=== PATIENT | male | born 1990 ===

== ENCOUNTER 2021-01-29 02:50 | Inpatient (IN) ==
[2021-01-29 03:30] LABS: ABG Base Excess -1.3 MMOL/L (-2.5-2.5); ABG HCO3 23.3 MMOL/L (20-26); ABG Oxygen Saturation 96.9 % (95-100); ABG PCO2 33.6 MM HG (35-48); ABG PH 7.428 (7.35-7.45); ABG PO2 93.2 MM HG (80-95)
[2021-01-29] MEDS ORDERED: AZITHROMYCIN INJ 500 MG in SODIUM CHLORIDE 0.9% 250 ML IV ONE (04:10)
[2021-01-29] MEDS: ZINC GLUCONATE 50 MG TABLET PO SCH (08:20)
[2021-01-29] MEDS: CHOLECALCIFEROL 1,000 UNIT TABLET PO SCH (08:20)
[2021-01-29] MEDS: FAMOTIDINE 20 MG TABLET PO SCH ×2 (08:20→20:19)
[2021-01-29] MEDS: ASCORBIC ACID 500 MG TABLET PO SCH ×2 (08:20→20:19)
[2021-01-29] MEDS: ENOXAPARIN 40 MG/0.4 ML SYRINGE SUBCUT SCH (08:20)
[2021-01-29] MEDS: DEXAMETHASONE 4 MG/1 ML VIAL IV SCH (08:21)
[2021-01-29] MEDS ORDERED: DEXTROSE 50% 25 GM/50 ML VIAL IV PRN (09:12)
[2021-01-29] MEDS ORDERED: ONDANSETRON 4 MG/2 ML VIAL IV PRN (09:12)
[2021-01-29] MEDS ORDERED: GLUCAGON 1 MG VIAL IM PRN (09:12)
[2021-01-30 04:16] LABS: Basophils % 0.2 % (0.0-0.8); Hematocrit 41.3 VOL% (42.0-52.0); Hemoglobin 13.7 GM/DL (14.0-18.0); Immature Granulocytes % 1.1 %; Immature Granulocytes Absolute 0.06 #; Lymphocytes # 0.8 10*3/uL (1.4-4.0); Lymphocytes % 15.1 % (21.2-54.2); Mean Corpuscular HGB Conc 33.2 GM/DL (32-36); Mean Corpuscular Volume 91.4 FL (87-102); Mean Platelet Volume 10.1 FL (9.6-12.0); Monocytes % 7.4 % (1.7-12.7); Neutrophils % 76.2 % (38.7-73.9); Platelet Count 199 T/CUMM (130-400); Red Blood Count 4.52 MC/CUMM (3.8-5.5); White Blood Count 5.2 T/CUMM (4-12)
[2021-01-30 04:23] LABS: PT Patient Result 10.8 SECS (10.5-12.0)
[2021-01-30 04:53] LABS: Albumin 2.2 G/DL (3.4-5.0); Bilirubin,Total 0.6 MG/DL (0.20-1.00); Calcium 7.8 MG/DL (8.5-10.1); Osmolality,Calculated 291.4 MOS/KG (273-304); Total Protein 6.4 G/DL (6.4-8.2)
[2021-01-30 05:18] LABS: Band Neutrophils 9 % (0-10); Lymphocytes 6 % (20-55); Segmented Neutrophils 75 % (50-85); Total Cells Counted 100
[2021-01-30 05:19] LABS: Hypochromasia 1+; Microcytosis 1+; Ovalocytes Slight; Platelet Estimate Adequate
[2021-01-30] MEDS: ENOXAPARIN 40 MG/0.4 ML SYRINGE SUBCUT SCH (09:15)
[2021-01-30] MEDS: ZINC GLUCONATE 50 MG TABLET PO SCH (09:15)
[2021-01-30] MEDS: CHOLECALCIFEROL 1,000 UNIT TABLET PO SCH (09:15)
[2021-01-30] MEDS: DEXAMETHASONE 4 MG/1 ML VIAL IV SCH (09:15)
[2021-01-30] MEDS: FAMOTIDINE 20 MG TABLET PO SCH ×2 (09:15→21:28)
[2021-01-30] MEDS: ASCORBIC ACID 500 MG TABLET PO SCH ×2 (09:15→21:28)
[2021-01-30] MEDS ORDERED: DEXTROSE 50% 25 GM/50 ML VIAL IV PRN (17:27)
[2021-01-30] MEDS: INSULIN REGULAR 100 UNIT/ML SUBCUT SCH (21:27)
[2021-01-31 05:36] LABS: Basophils % 0.1 % (0.0-0.8); Immature Granulocytes % 0.9 %; Immature Granulocytes Absolute 0.07 #; Lymphocytes # 0.9 10*3/uL (1.4-4.0); Lymphocytes % 11.1 % (21.2-54.2); Mean Corpuscular HGB Conc 33.3 GM/DL (32-36); Mean Corpuscular Volume 92.3 FL (87-102); Mean Platelet Volume 10.6 FL (9.6-12.0); Monocytes % 8.3 % (1.7-12.7); Neutrophils % 79.6 % (38.7-73.9); Platelet Count 225 T/CUMM (130-400); Red Blood Count 4.55 MC/CUMM (3.8-5.5); Red Cell Distribution Width 13.6 % (9.3-17.3); White Blood Count 7.8 T/CUMM (4-12)
[2021-01-31 06:00] LABS: Albumin 2.4 G/DL (3.4-5.0); Bilirubin,Direct 0.28 MG/DL (0.0-0.20); Bilirubin,Indirect 0.3 MG/DL (0.0-1.0); Bilirubin,Total 0.6 MG/DL (0.20-1.00); Calcium 8.2 MG/DL (8.5-10.1); Potassium 4.1 MMOL/L (3.5-5.1); Total Protein 6.6 G/DL (6.4-8.2)
[2021-01-31 06:04] LABS: Band Neutrophils 4 % (0-10); Hypochromasia Slight; Lymphocytes 9 % (20-55); Microcytosis 1+; Ovalocytes Slight; Segmented Neutrophils 81 % (50-85); Total Cells Counted 100
[2021-01-31 06:05] LABS: Platelet Estimate Normal
[2021-01-31] MEDS: FAMOTIDINE 20 MG TABLET PO SCH ×2 (09:17→20:49)
[2021-01-31] MEDS: CHOLECALCIFEROL 1,000 UNIT TABLET PO SCH (09:18)
[2021-01-31] MEDS: ENOXAPARIN 40 MG/0.4 ML SYRINGE SUBCUT SCH (09:18)
[2021-01-31] MEDS: ZINC GLUCONATE 50 MG TABLET PO SCH (09:18)
[2021-01-31] MEDS: ASCORBIC ACID 500 MG TABLET PO SCH ×2 (09:18→20:49)
[2021-01-31] MEDS: INSULIN REGULAR 100 UNIT/ML SUBCUT SCH ×4 (09:19→20:49)
[2021-01-31] MEDS: DEXAMETHASONE 4 MG/1 ML VIAL IV SCH (09:19)
[2021-01-31] MEDS: MELATONIN 3 MG TABLET PO PRN (20:49)
[2021-02-01 05:23] LABS: Basophils % 0.1 % (0.0-0.8); Hemoglobin 14.4 GM/DL (14.0-18.0); Immature Granulocytes % 1.2 %; Immature Granulocytes Absolute 0.09 #; Lymphocytes % 12.9 % (21.2-54.2); Mean Corpuscular HGB Conc 33.5 GM/DL (32-36); Mean Corpuscular Volume 90.9 FL (87-102); Mean Platelet Volume 10.3 FL (9.6-12.0); Monocytes % 10.7 % (1.7-12.7); Neutrophils % 75.1 % (38.7-73.9); Platelet Count 232 T/CUMM (130-400); Red Blood Count 4.73 MC/CUMM (3.8-5.5); Red Cell Distribution Width 13.4 % (9.3-17.3); White Blood Count 7.4 T/CUMM (4-12)
[2021-02-01 05:46] LABS: Hypochromasia Slight; Microcytosis Slight
[2021-02-01 05:47] LABS: Ovalocytes Slight; Platelet Estimate Adequate
[2021-02-01 06:02] LABS: Albumin 2.6 G/DL (3.4-5.0); Bilirubin,Direct 0.41 MG/DL (0.0-0.20); Bilirubin,Indirect 0.5 MG/DL (0.0-1.0); Bilirubin,Total 0.9 MG/DL (0.20-1.00); Calcium 8.2 MG/DL (8.5-10.1); Osmolality,Calculated 284.5 MOS/KG (273-304); Potassium 3.8 MMOL/L (3.5-5.1)
[2021-02-01] MEDS: INSULIN REGULAR 100 UNIT/ML SUBCUT SCH ×4 (08:08→21:24)
[2021-02-01] MEDS: CHOLECALCIFEROL 1,000 UNIT TABLET PO SCH (08:32)
[2021-02-01] MEDS: FAMOTIDINE 20 MG TABLET PO SCH ×2 (08:32→21:20)
[2021-02-01] MEDS: ZINC GLUCONATE 50 MG TABLET PO SCH (08:33)
[2021-02-01] MEDS: ASCORBIC ACID 500 MG TABLET PO SCH ×2 (08:33→21:21)
[2021-02-01] MEDS: ENOXAPARIN 40 MG/0.4 ML SYRINGE SUBCUT SCH (08:33)
[2021-02-01] MEDS: DEXAMETHASONE 4 MG/1 ML VIAL IV SCH (08:33)
[2021-02-01] MEDS: CLORAZEPATE 3.75 MG TABLET PO PRN (21:21)
[2021-02-02 07:05] LABS: Basophils % 0.1 % (0.0-0.8); Eosinophils % 0.1 % (0.00-10.9); Hemoglobin 14.3 GM/DL (14.0-18.0); Immature Granulocytes % 1.3 %; Immature Granulocytes Absolute 0.15 #; Lymphocytes # 1.4 10*3/uL (1.4-4.0); Lymphocytes % 12.1 % (21.2-54.2); Mean Corpuscular HGB Conc 33.3 GM/DL (32-36); Mean Corpuscular Volume 92.1 FL (87-102); Mean Platelet Volume 10.8 FL (9.6-12.0); Monocytes % 4.5 % (1.7-12.7); Neutrophils % 81.9 % (38.7-73.9); Platelet Count 226 T/CUMM (130-400); Red Blood Count 4.67 MC/CUMM (3.8-5.5); Red Cell Distribution Width 13.4 % (9.3-17.3); White Blood Count 11.2 T/CUMM (4-12)
[2021-02-02 07:29] LABS: Calcium 8.6 MG/DL (8.5-10.1); Osmolality,Calculated 285.1 MOS/KG (273-304)
[2021-02-02] MEDS: INSULIN REGULAR 100 UNIT/ML SUBCUT SCH ×4 (07:41→20:35)
[2021-02-02] MEDS: DEXAMETHASONE 4 MG/1 ML VIAL IV SCH (10:18)
[2021-02-02] MEDS: ZINC GLUCONATE 50 MG TABLET PO SCH (10:19)
[2021-02-02] MEDS: ENOXAPARIN 40 MG/0.4 ML SYRINGE SUBCUT SCH (10:19)
[2021-02-02] MEDS: FAMOTIDINE 20 MG TABLET PO SCH ×2 (10:19→20:25)
[2021-02-02] MEDS: CHOLECALCIFEROL 1,000 UNIT TABLET PO SCH (10:19)
[2021-02-02] MEDS: ASCORBIC ACID 500 MG TABLET PO SCH ×2 (10:20→20:25)
[2021-02-02] MEDS ORDERED: LORazepam 2 MG/1 ML VIAL IV ONE (13:21)
[2021-02-02] MEDS ORDERED: LORazepam 2 MG/1 ML VIAL ONE (13:47)
[2021-02-02] MEDS: MELATONIN 3 MG TABLET PO PRN (20:25)
[2021-02-03] MEDS: CLORAZEPATE 3.75 MG TABLET PO PRN ×2 (00:32→23:32)
[2021-02-03 06:16] LABS: Basophils % 0.1 % (0.0-0.8); Eosinophils # 0.1 10*3/uL (0.0-0.87); Eosinophils % 0.5 % (0.00-10.9); Hemoglobin 14.4 GM/DL (14.0-18.0); Immature Granulocytes % 1.4 %; Immature Granulocytes Absolute 0.17 #; Lymphocytes # 1.1 10*3/uL (1.4-4.0); Lymphocytes % 8.9 % (21.2-54.2); Mean Corpuscular HGB Conc 33.5 GM/DL (32-36); Mean Corpuscular Volume 91.9 FL (87-102); Mean Platelet Volume 11.4 FL (9.6-12.0); Monocytes % 2.9 % (1.7-12.7); Neutrophils % 86.2 % (38.7-73.9); Platelet Count 180 T/CUMM (130-400); Red Blood Count 4.68 MC/CUMM (3.8-5.5); Red Cell Distribution Width 13.2 % (9.3-17.3); White Blood Count 12.2 T/CUMM (4-12)
[2021-02-03 06:39] LABS: Calcium 8.4 MG/DL (8.5-10.1); Osmolality,Calculated 279.4 MOS/KG (273-304); Potassium 4.1 MMOL/L (3.5-5.1)
[2021-02-03] MEDS: INSULIN REGULAR 100 UNIT/ML SUBCUT SCH ×4 (07:32→20:17)
[2021-02-03] MEDS: ASCORBIC ACID 500 MG TABLET PO SCH ×2 (08:08→20:17)
[2021-02-03] MEDS: FAMOTIDINE 20 MG TABLET PO SCH ×2 (08:08→20:17)
[2021-02-03] MEDS: CHOLECALCIFEROL 1,000 UNIT TABLET PO SCH (08:08)
[2021-02-03] MEDS: ZINC GLUCONATE 50 MG TABLET PO SCH (08:09)
[2021-02-03] MEDS: ENOXAPARIN 40 MG/0.4 ML SYRINGE SUBCUT SCH (08:09)
[2021-02-03] MEDS: DEXAMETHASONE 4 MG/1 ML VIAL IV SCH (08:09)
[2021-02-03] MEDS: MELATONIN 3 MG TABLET PO PRN (20:17)
[2021-02-04] MEDS: ACETAMINOPHEN 325 MG TABLET PO PRN (01:35)
[2021-02-04 05:45] LABS: Basophils % 0.1 % (0.0-0.8); Eosinophils # 0.2 10*3/uL (0.0-0.87); Eosinophils % 1.2 % (0.00-10.9); Hematocrit 41.9 VOL% (42.0-52.0); Hemoglobin 14.4 GM/DL (14.0-18.0); Immature Granulocytes Absolute 0.27 #; Lymphocytes % 7.1 % (21.2-54.2); Mean Corpuscular HGB Conc 34.4 GM/DL (32-36); Mean Corpuscular Volume 91.5 FL (87-102); Mean Platelet Volume 11.2 FL (9.6-12.0); Monocytes % 3.6 % (1.7-12.7); Platelet Count 189 T/CUMM (130-400); Red Blood Count 4.58 MC/CUMM (3.8-5.5); Red Cell Distribution Width 13.2 % (9.3-17.3); White Blood Count 13.6 T/CUMM (4-12)
[2021-02-04 06:06] LABS: Calcium 8.5 MG/DL (8.5-10.1); Osmolality,Calculated 279.4 MOS/KG (273-304); Potassium 3.9 MMOL/L (3.5-5.1)
[2021-02-04] MEDS: ENOXAPARIN 40 MG/0.4 ML SYRINGE SUBCUT SCH (08:14)
[2021-02-04] MEDS: DEXAMETHASONE 4 MG/1 ML VIAL IV SCH (08:14)
[2021-02-04] MEDS: CHOLECALCIFEROL 1,000 UNIT TABLET PO SCH (08:15)
[2021-02-04] MEDS: ASCORBIC ACID 500 MG TABLET PO SCH ×2 (08:15→20:08)
[2021-02-04] MEDS: FAMOTIDINE 20 MG TABLET PO SCH ×2 (08:15→20:08)
[2021-02-04] MEDS: ZINC GLUCONATE 50 MG TABLET PO SCH (08:15)
[2021-02-04] MEDS: CLORAZEPATE 3.75 MG TABLET PO PRN (08:17)
[2021-02-04] MEDS: INSULIN REGULAR 100 UNIT/ML SUBCUT SCH ×4 (08:18→21:53)
[2021-02-04] MEDS: ALPRAZolam 0.5 MG TABLET PO PRN ×2 (12:00→22:57)
[2021-02-04 12:51] LABS: ABG Base Excess 0.9 MMOL/L (-2.5-2.5); ABG HCO3 25.2 MMOL/L (20-26); ABG Oxygen Saturation 95.1 % (95-100); ABG PCO2 35.5 MM HG (35-48); ABG PH 7.447 (7.35-7.45); ABG PO2 78.3 MM HG (80-95)
[2021-02-04] MEDS: MELATONIN 3 MG TABLET PO PRN (20:08)
[2021-02-05] MEDS: CLORAZEPATE 3.75 MG TABLET PO PRN (01:45)
[2021-02-05 07:00] LABS: Basophils % 0.2 % (0.0-0.8); Eosinophils # 0.1 10*3/uL (0.0-0.87); Eosinophils % 0.8 % (0.00-10.9); Hematocrit 40.4 VOL% (42.0-52.0); Hemoglobin 13.7 GM/DL (14.0-18.0); Immature Granulocytes % 1.9 %; Immature Granulocytes Absolute 0.26 #; Lymphocytes # 0.8 10*3/uL (1.4-4.0); Mean Corpuscular HGB Conc 33.9 GM/DL (32-36); Mean Corpuscular Volume 91.4 FL (87-102); Mean Platelet Volume 11.1 FL (9.6-12.0); Monocytes % 5.5 % (1.7-12.7); Neutrophils % 85.6 % (38.7-73.9); Platelet Count 191 T/CUMM (130-400); Red Blood Count 4.42 MC/CUMM (3.8-5.5); Red Cell Distribution Width 13.2 % (9.3-17.3); White Blood Count 13.9 T/CUMM (4-12)
[2021-02-05 07:27] LABS: Calcium 8.4 MG/DL (8.5-10.1); Osmolality,Calculated 273.8 MOS/KG (273-304); Potassium 4.1 MMOL/L (3.5-5.1)
[2021-02-05] MEDS: INSULIN REGULAR 100 UNIT/ML SUBCUT SCH ×4 (07:44→23:09)
[2021-02-05] MEDS: FAMOTIDINE 20 MG TABLET PO SCH ×2 (09:28→20:08)
[2021-02-05] MEDS: DEXAMETHASONE 4 MG/1 ML VIAL IV SCH (09:28)
[2021-02-05] MEDS: ENOXAPARIN 40 MG/0.4 ML SYRINGE SUBCUT SCH (09:28)
[2021-02-05] MEDS: CHOLECALCIFEROL 1,000 UNIT TABLET PO SCH (09:29)
[2021-02-05] MEDS: ASCORBIC ACID 500 MG TABLET PO SCH ×2 (09:29→20:08)
[2021-02-05] MEDS: ZINC GLUCONATE 50 MG TABLET PO SCH (09:29)
[2021-02-05] MEDS: ALPRAZolam 0.5 MG TABLET PO PRN ×2 (12:15→23:09)
[2021-02-05] MEDS: cefTRIAXone 1,000 MG in SODIUM CHLORIDE 0.9% 100 ML IV SCH (18:23)
[2021-02-05] MEDS: AZITHROMYCIN INJ 250 MG in SODIUM CHLORIDE 0.9% 250 ML IV SCH (18:54)
[2021-02-05] MEDS: ACETAMINOPHEN 325 MG TABLET PO PRN (20:08)
[2021-02-05] MEDS: MELATONIN 3 MG TABLET PO PRN (20:08)
[2021-02-05] MEDS: OLANZapine 5 MG TABLET PO PRN (20:08)
[2021-02-05] MEDS: ENOXAPARIN 80 MG/0.8 ML SYRINGE SUBCUT SCH (21:33)
[2021-02-06 04:26] LABS: Allen Test Positive; Pt O2 Delivery Device Other
[2021-02-06 04:28] LABS: ABG Base Excess 1.3 MMOL/L (-2.5-2.5); ABG HCO3 25.4 MMOL/L (20-26); ABG Oxygen Saturation 93.3 % (95-100); ABG PCO2 38.1 MM HG (35-48); ABG PH 7.431 (7.35-7.45); ABG PO2 69.6 MM HG (80-95); ABG TCO2 21.7 MMOL/L (23-27)
[2021-02-06 06:43] LABS: Basophils % 0.1 % (0.0-0.8); Eosinophils % 0.3 % (0.00-10.9); Hemoglobin 13.3 GM/DL (14.0-18.0); Immature Granulocytes % 1.5 %; Immature Granulocytes Absolute 0.21 #; Lymphocytes # 0.9 10*3/uL (1.4-4.0); Lymphocytes % 6.2 % (21.2-54.2); Mean Corpuscular HGB Conc 33.3 GM/DL (32-36); Mean Corpuscular Volume 90.9 FL (87-102); Mean Platelet Volume 11.3 FL (9.6-12.0); Monocytes % 5.8 % (1.7-12.7); Neutrophils % 86.1 % (38.7-73.9); Platelet Count 208 T/CUMM (130-400); Red Cell Distribution Width 13.2 % (9.3-17.3); White Blood Count 13.9 T/CUMM (4-12)
[2021-02-06 07:09] LABS: Calcium 8.7 MG/DL (8.5-10.1); Ferritin 1964.1 ng/mL (26-388); Osmolality,Calculated 276.7 MOS/KG (273-304)
[2021-02-06] MEDS: CHOLECALCIFEROL 1,000 UNIT TABLET PO SCH (08:32)
[2021-02-06] MEDS: ASCORBIC ACID 500 MG TABLET PO SCH ×2 (08:32→20:33)
[2021-02-06] MEDS: ENOXAPARIN 80 MG/0.8 ML SYRINGE SUBCUT SCH ×2 (08:33→20:33)
[2021-02-06] MEDS: FAMOTIDINE 20 MG TABLET PO SCH ×2 (08:33→20:34)
[2021-02-06] MEDS: ZINC GLUCONATE 50 MG TABLET PO SCH (08:33)
[2021-02-06] MEDS: DEXAMETHASONE 4 MG/1 ML VIAL IV SCH (08:33)
[2021-02-06] MEDS: INSULIN REGULAR 100 UNIT/ML SUBCUT SCH ×4 (08:34→20:35)
[2021-02-06] MEDS: AZITHROMYCIN INJ 250 MG in SODIUM CHLORIDE 0.9% 250 ML IV SCH (15:50)
[2021-02-06] MEDS: cefTRIAXone 1,000 MG in SODIUM CHLORIDE 0.9% 100 ML IV SCH (20:33)
[2021-02-06] MEDS: MELATONIN 3 MG TABLET PO PRN (20:34)
[2021-02-06] MEDS: OLANZapine 5 MG TABLET PO PRN (20:34)
[2021-02-06] MEDS: ALPRAZolam 0.5 MG TABLET PO PRN (20:34)
[2021-02-07] MEDS: CLORAZEPATE 3.75 MG TABLET PO PRN (04:00)
[2021-02-07 05:51] LABS: Basophils % 0.1 % (0.0-0.8); Eosinophils # 0.1 10*3/uL (0.0-0.87); Eosinophils % 0.6 % (0.00-10.9); Hematocrit 40.5 VOL% (42.0-52.0); Hemoglobin 13.3 GM/DL (14.0-18.0); Immature Granulocytes % 1.8 %; Immature Granulocytes Absolute 0.28 #; Lymphocytes # 1.2 10*3/uL (1.4-4.0); Lymphocytes % 8.2 % (21.2-54.2); Mean Corpuscular HGB Conc 32.8 GM/DL (32-36); Mean Corpuscular Volume 92.7 FL (87-102); Mean Platelet Volume 11.1 FL (9.6-12.0); Monocytes % 5.6 % (1.7-12.7); Neutrophils % 83.7 % (38.7-73.9); Platelet Count 208 T/CUMM (130-400); Red Blood Count 4.37 MC/CUMM (3.8-5.5); Red Cell Distribution Width 13.3 % (9.3-17.3); White Blood Count 15.2 T/CUMM (4-12)
[2021-02-07 05:57] LABS: Calcium 8.4 MG/DL (8.5-10.1); Ferritin 1623.6 ng/mL (26-388); Osmolality,Calculated 279.4 MOS/KG (273-304); Potassium 3.8 MMOL/L (3.5-5.1)
[2021-02-07] MEDS: INSULIN REGULAR 100 UNIT/ML SUBCUT SCH ×4 (07:30→20:47)
[2021-02-07] MEDS: ASCORBIC ACID 500 MG TABLET PO SCH ×2 (09:14→20:45)
[2021-02-07] MEDS: DEXAMETHASONE 4 MG/1 ML VIAL IV SCH (09:14)
[2021-02-07] MEDS: ENOXAPARIN 80 MG/0.8 ML SYRINGE SUBCUT SCH (09:15)
[2021-02-07] MEDS: FAMOTIDINE 20 MG TABLET PO SCH ×2 (09:15→20:45)
[2021-02-07] MEDS: CHOLECALCIFEROL 1,000 UNIT TABLET PO SCH (09:15)
[2021-02-07] MEDS: ZINC GLUCONATE 50 MG TABLET PO SCH (09:15)
[2021-02-07] MEDS: AZITHROMYCIN INJ 250 MG in SODIUM CHLORIDE 0.9% 250 ML IV SCH (09:16)
[2021-02-07 14:33] LABS: Alanine Aminotransferase 135 U/L (16-61); Aspartate Amino Transferase 92 U/L (0-37)
[2021-02-07] MEDS: ALPRAZolam 0.5 MG TABLET PO PRN (20:45)
[2021-02-07] MEDS: MELATONIN 3 MG TABLET PO PRN (20:45)
[2021-02-07] MEDS: OLANZapine 5 MG TABLET PO PRN (20:45)
[2021-02-07] MEDS: ENOXAPARIN 150 MG/ML SYRINGE SUBCUT SCH (20:46)
[2021-02-07] MEDS: cefTRIAXone 1,000 MG in SODIUM CHLORIDE 0.9% 100 ML IV SCH (20:46)
[2021-02-08 05:43] LABS: Basophils % 0.2 % (0.0-0.8); Eosinophils # 0.1 10*3/uL (0.0-0.87); Eosinophils % 0.4 % (0.00-10.9); Hematocrit 39.5 VOL% (42.0-52.0); Hemoglobin 13.5 GM/DL (14.0-18.0); Immature Granulocytes % 1.4 %; Immature Granulocytes Absolute 0.25 #; Lymphocytes # 1.4 10*3/uL (1.4-4.0); Lymphocytes % 7.7 % (21.2-54.2); Mean Corpuscular HGB Conc 34.2 GM/DL (32-36); Mean Corpuscular Volume 92.1 FL (87-102); Mean Platelet Volume 11.6 FL (9.6-12.0); Monocytes % 4.4 % (1.7-12.7); Neutrophils % 85.9 % (38.7-73.9); Platelet Count 220 T/CUMM (130-400); Red Blood Count 4.29 MC/CUMM (3.8-5.5); Red Cell Distribution Width 13.3 % (9.3-17.3); White Blood Count 18.2 T/CUMM (4-12)
[2021-02-08 06:11] LABS: Calcium 8.8 MG/DL (8.5-10.1); Osmolality,Calculated 273.8 MOS/KG (273-304); Potassium 3.9 MMOL/L (3.5-5.1)
[2021-02-08 06:19] LABS: Ferritin 1504.8 ng/mL (26-388)
[2021-02-08] MEDS: INSULIN REGULAR 100 UNIT/ML SUBCUT SCH ×4 (07:51→21:15)
[2021-02-08] MEDS: ENOXAPARIN 150 MG/ML SYRINGE SUBCUT SCH ×2 (09:25→20:42)
[2021-02-08] MEDS: ALPRAZolam 0.5 MG TABLET PO PRN ×2 (09:26→20:43)
[2021-02-08] MEDS: ASCORBIC ACID 500 MG TABLET PO SCH ×2 (09:26→20:43)
[2021-02-08] MEDS: CHOLECALCIFEROL 1,000 UNIT TABLET PO SCH (09:26)
[2021-02-08] MEDS: FAMOTIDINE 20 MG TABLET PO SCH ×2 (09:26→20:43)
[2021-02-08] MEDS: ZINC GLUCONATE 50 MG TABLET PO SCH (09:26)
[2021-02-08] MEDS: AZITHROMYCIN INJ 250 MG in SODIUM CHLORIDE 0.9% 250 ML IV SCH (09:32)
[2021-02-08 13:52] LABS: ABG Base Excess 1.6 MMOL/L (-2.5-2.5); ABG HCO3 25.5 MMOL/L (20-26); ABG Oxygen Saturation 90.4 % (95-100); ABG PCO2 36.8 MM HG (35-48); ABG PH 7.442 (7.35-7.45); ABG PO2 61.3 MM HG (80-95); ABG TCO2 19.4 MMOL/L (23-27)
[2021-02-08] MEDS: cefTRIAXone 1,000 MG in SODIUM CHLORIDE 0.9% 100 ML IV SCH (20:42)
[2021-02-08] MEDS: MELATONIN 3 MG TABLET PO PRN (20:43)
[2021-02-08] MEDS: OLANZapine 5 MG TABLET PO PRN (20:43)
[2021-02-09] MEDS: ALPRAZolam 0.5 MG TABLET PO PRN (01:56)
[2021-02-09] MEDS ORDERED: ROCURONIUM 100 MG/10 ML VIAL IV ONE ×3 (04:20→07:06)
[2021-02-09] MEDS ORDERED: ETOMIDATE 20 MG/10 ML VIAL IV ONE ×2 (04:31→04:40)
[2021-02-09] MEDS ORDERED: ACETAMINOPHEN 650 MG SUPP RECTAL ONE (05:00)
[2021-02-09] MEDS ORDERED: METOPROLOL TARTRATE 5 MG/5 ML VIAL IV ONE ×2 (05:07→05:20)
[2021-02-09] MEDS: METOPROLOL TARTRATE 5 MG/5 ML VIAL IV SCH ×3 (05:08→07:02)
[2021-02-09] MEDS ORDERED: LABETALOL 20 MG/4 ML SYRINGE IV ONE ×2 (05:20→10:17)
[2021-02-09 05:27] LABS: Basophils % 0.2 % (0.0-0.8); Eosinophils # 0.1 10*3/uL (0.0-0.87); Eosinophils % 0.6 % (0.00-10.9); Hematocrit 40.1 VOL% (42.0-52.0); Hemoglobin 13.1 GM/DL (14.0-18.0); Immature Granulocytes % 2.2 %; Immature Granulocytes Absolute 0.49 #; Lymphocytes # 1.8 10*3/uL (1.4-4.0); Lymphocytes % 8.3 % (21.2-54.2); Mean Corpuscular HGB Conc 32.7 GM/DL (32-36); Mean Corpuscular Volume 93.9 FL (87-102); Mean Platelet Volume 11.3 FL (9.6-12.0); Monocytes % 3.6 % (1.7-12.7); Neutrophils % 85.1 % (38.7-73.9); Platelet Count 229 T/CUMM (130-400); Red Blood Count 4.27 MC/CUMM (3.8-5.5); Red Cell Distribution Width 13.6 % (9.3-17.3); White Blood Count 21.9 T/CUMM (4-12)
[2021-02-09 05:29] LABS: ABG Base Excess -0.7 MMOL/L (-2.5-2.5); ABG Oxygen Saturation 93.6 % (95-100); ABG PH 7.435 (7.35-7.45); ABG PO2 68.2 MM HG (80-95)
[2021-02-09] MEDS: fentaNYL INJ 5,000 MCG in SODIUM CHLORIDE 0.9% 150 ML IV PRN ×2 (05:40→21:44)
[2021-02-09 05:48] LABS: Lymphocytes 6 % (20-55); Platelet Estimate Adequate; Segmented Neutrophils 89 % (50-85); Total Cells Counted 100
[2021-02-09 05:51] LABS: Calcium 8.4 MG/DL (8.5-10.1); Osmolality,Calculated 272.8 MOS/KG (273-304); Potassium 3.9 MMOL/L (3.5-5.1)
[2021-02-09 06:27] LABS: Ferritin 1528.7 ng/mL (26-388)
[2021-02-09 06:34] LABS: ABG Base Excess -3.1 MMOL/L (-2.5-2.5); ABG HCO3 21.6 MMOL/L (20-26); ABG Oxygen Saturation 85.1 % (95-100); ABG PCO2 59.1 MM HG (35-48); ABG PH 7.248 (7.35-7.45); ABG PO2 63.4 MM HG (80-95); ABG TCO2 22.8 MMOL/L (23-27)
[2021-02-09] MEDS: MIDAZOLAM 100 MG in SODIUM CHLORIDE 0.9% 80 ML IV PRN ×2 (06:45→17:18)
[2021-02-09] MEDS ORDERED: methylPREDNISolone SOD SUC 40 MG/1 ML VIAL IV SCH (07:00)
[2021-02-09] MEDS ORDERED: methylPREDNISolone SOD SUC 125 MG/2 ML VIAL IV ONE (07:01)
[2021-02-09] MEDS: INSULIN REGULAR 100 UNIT/ML SUBCUT SCH ×4 (07:47→17:42)
[2021-02-09] MEDS ORDERED: TOCILIZUMAB 800 MG in SODIUM CHLORIDE 0.9% 100 ML IV ONE (09:00)
[2021-02-09] MEDS: ENOXAPARIN 150 MG/ML SYRINGE SUBCUT SCH ×2 (09:39→21:21)
[2021-02-09] MEDS: CHOLECALCIFEROL 5,000 UNIT TABLET PO SCH ×2 (09:40→21:21)
[2021-02-09] MEDS: ASCORBIC ACID 500 MG TABLET PO SCH ×2 (09:40→21:21)
[2021-02-09] MEDS: FAMOTIDINE 20 MG TABLET PO SCH ×2 (09:40→21:21)
[2021-02-09] MEDS: ZINC GLUCONATE 50 MG TABLET PO SCH (09:40)
[2021-02-09] MEDS: ROCURONIUM 500 MG in SODIUM CHLORIDE 0.9% 500 ML IV PRN ×2 (09:40→16:30)
[2021-02-09] MEDS ORDERED: DIGOXIN 0.5 MG/2 ML AMP IV ONE (10:17)
[2021-02-09 10:19] LABS: ABG Base Excess -4.5 MMOL/L (-2.5-2.5); ABG HCO3 20.6 MMOL/L (20-26); ABG Oxygen Saturation 92.6 % (95-100); ABG PCO2 64.9 MM HG (35-48); ABG PO2 82.4 MM HG (80-95); ABG TCO2 22.8 MMOL/L (23-27)
[2021-02-09 10:21] LABS: ABG PH 7.202 (7.35-7.45)
[2021-02-09] MEDS: methylPREDNISolone SOD SUC 40 MG/1 ML VIAL IV SCH ×2 (14:56→21:20)
[2021-02-09] MEDS: MELATONIN 3 MG TABLET PO SCH (21:21)
[2021-02-09] MEDS: cefTRIAXone 1,000 MG in SODIUM CHLORIDE 0.9% 100 ML IV SCH (21:38)
[2021-02-10] MEDS: ROCURONIUM 1,000 MG in SODIUM CHLORIDE 0.9% 175 ML IV PRN ×2 (00:14→19:29)
[2021-02-10] MEDS: INSULIN REGULAR 100 UNIT/ML SUBCUT SCH ×4 (02:01→18:22)
[2021-02-10 05:17] LABS: ABG Base Excess -6.6 MMOL/L (-2.5-2.5); ABG HCO3 19.1 MMOL/L (20-26); ABG Oxygen Saturation 97.2 % (95-100); ABG PCO2 65.7 MM HG (35-48); ABG TCO2 21.7 MMOL/L (23-27)
[2021-02-10 05:20] LABS: ABG PH 7.164 (7.35-7.45)
[2021-02-10 05:23] LABS: Basophils % 0.2 % (0.0-0.8); Hematocrit 37.6 VOL% (42.0-52.0); Hemoglobin 11.9 GM/DL (14.0-18.0); Immature Granulocytes % 2.4 %; Immature Granulocytes Absolute 0.41 #; Lymphocytes # 0.9 10*3/uL (1.4-4.0); Lymphocytes % 5.2 % (21.2-54.2); Mean Corpuscular HGB Conc 31.6 GM/DL (32-36); Mean Corpuscular Volume 96.7 FL (87-102); Mean Platelet Volume 11.1 FL (9.6-12.0); Monocytes % 3.9 % (1.7-12.7); Neutrophils % 88.3 % (38.7-73.9); Platelet Count 219 T/CUMM (130-400); Red Blood Count 3.89 MC/CUMM (3.8-5.5); Red Cell Distribution Width 13.4 % (9.3-17.3); White Blood Count 16.7 T/CUMM (4-12)
[2021-02-10 05:38] LABS: Calcium 9.1 MG/DL (8.5-10.1); Osmolality,Calculated 283.7 MOS/KG (273-304); Potassium 5.1 MMOL/L (3.5-5.1)
[2021-02-10] MEDS: methylPREDNISolone SOD SUC 40 MG/1 ML VIAL IV SCH ×3 (05:57→21:36)
[2021-02-10 06:32] LABS: Ferritin 1681.9 ng/mL (26-388)
[2021-02-10] MEDS: CHOLECALCIFEROL 5,000 UNIT TABLET PO SCH ×2 (08:17→21:35)
[2021-02-10] MEDS: ASCORBIC ACID 500 MG TABLET PO SCH ×2 (08:17→21:36)
[2021-02-10] MEDS: FAMOTIDINE 20 MG TABLET PO SCH ×2 (08:17→21:36)
[2021-02-10] MEDS: ZINC GLUCONATE 50 MG TABLET PO SCH (08:17)
[2021-02-10] MEDS: ENOXAPARIN 150 MG/ML SYRINGE SUBCUT SCH ×2 (08:18→21:35)
[2021-02-10] MEDS ORDERED: TOCILIZUMAB 800 MG in SODIUM CHLORIDE 0.9% 100 ML IV ONE (09:00)
[2021-02-10] MEDS: MIDAZOLAM 100 MG in SODIUM CHLORIDE 0.9% 80 ML IV PRN (09:41)
[2021-02-10] MEDS: fentaNYL INJ 5,000 MCG in SODIUM CHLORIDE 0.9% 150 ML IV PRN (17:13)
[2021-02-10] MEDS: MELATONIN 3 MG TABLET PO SCH (21:36)
[2021-02-10] MEDS: cefTRIAXone 1,000 MG in SODIUM CHLORIDE 0.9% 100 ML IV SCH (21:36)
[2021-02-11] MEDS: INSULIN REGULAR 100 UNIT/ML SUBCUT SCH ×4 (01:03→17:04)
[2021-02-11] MEDS: MIDAZOLAM 100 MG in SODIUM CHLORIDE 0.9% 80 ML IV PRN ×2 (03:10→20:15)
[2021-02-11 05:09] LABS: ABG Base Excess 0.1 MMOL/L (-2.5-2.5); ABG HCO3 28.1 MMOL/L (20-26); ABG Oxygen Saturation 96.1 % (95-100); ABG PCO2 62.4 MM HG (35-48); ABG PH 7.272 (7.35-7.45); ABG PO2 90.5 MM HG (80-95); ABG TCO2 30.1 MMOL/L (23-27)
[2021-02-11 05:13] LABS: Basophils % 0.2 % (0.0-0.8); Eosinophils % 0.1 % (0.00-10.9); Hematocrit 35.8 VOL% (42.0-52.0); Hemoglobin 11.4 GM/DL (14.0-18.0); Immature Granulocytes % 2.7 %; Immature Granulocytes Absolute 0.35 #; Lymphocytes # 0.7 10*3/uL (1.4-4.0); Lymphocytes % 5.1 % (21.2-54.2); Mean Corpuscular HGB Conc 31.8 GM/DL (32-36); Mean Corpuscular Volume 98.1 FL (87-102); Monocytes % 6.3 % (1.7-12.7); Neutrophils % 85.6 % (38.7-73.9); Platelet Count 230 T/CUMM (130-400); Red Blood Count 3.65 MC/CUMM (3.8-5.5); Red Cell Distribution Width 13.5 % (9.3-17.3); White Blood Count 13.1 T/CUMM (4-12)
[2021-02-11 05:32] LABS: Calcium 8.7 MG/DL (8.5-10.1); Osmolality,Calculated 296.1 MOS/KG (273-304); Potassium 5.1 MMOL/L (3.5-5.1)
[2021-02-11] MEDS: methylPREDNISolone SOD SUC 40 MG/1 ML VIAL IV SCH ×3 (06:32→22:06)
[2021-02-11 06:39] LABS: Ferritin 1525.2 ng/mL (26-388)
[2021-02-11 07:12] LABS: Band Neutrophils 1 % (0-10); Hypochromasia Slight; Lymphocytes 3 % (20-55); Microcytosis Slight; Platelet Estimate Adequate; Segmented Neutrophils 93 % (50-85); Total Cells Counted 100
[2021-02-11] MEDS: ENOXAPARIN 150 MG/ML SYRINGE SUBCUT SCH ×2 (09:08→22:05)
[2021-02-11] MEDS: FAMOTIDINE 20 MG TABLET PO SCH ×2 (09:10→22:05)
[2021-02-11] MEDS: ASCORBIC ACID 500 MG TABLET PO SCH ×2 (09:10→22:05)
[2021-02-11] MEDS: CHOLECALCIFEROL 5,000 UNIT TABLET PO SCH ×2 (09:10→22:05)
[2021-02-11] MEDS: ZINC GLUCONATE 50 MG TABLET PO SCH (09:10)
[2021-02-11] MEDS: ROCURONIUM 1,000 MG in SODIUM CHLORIDE 0.9% 175 ML IV PRN (21:50)
[2021-02-11] MEDS: MELATONIN 3 MG TABLET PO SCH (22:04)
[2021-02-11] MEDS: cefTRIAXone 1,000 MG in SODIUM CHLORIDE 0.9% 100 ML IV SCH (22:05)
[2021-02-12] MEDS: INSULIN REGULAR 100 UNIT/ML SUBCUT SCH ×4 (00:18→17:27)
[2021-02-12] MEDS: methylPREDNISolone SOD SUC 40 MG/1 ML VIAL IV SCH ×3 (05:31→21:56)
[2021-02-12 05:45] LABS: ABG Base Excess 3.5 MMOL/L (-2.5-2.5); ABG HCO3 27.5 MMOL/L (20-26); ABG Oxygen Saturation 95.8 % (95-100); ABG PCO2 60.1 MM HG (35-48); ABG PH 7.322 (7.35-7.45); ABG PO2 84.3 MM HG (80-95); ABG TCO2 28.2 MMOL/L (23-27)
[2021-02-12 06:12] LABS: Calcium 8.8 MG/DL (8.5-10.1); Osmolality,Calculated 301.8 MOS/KG (273-304); Potassium 5.2 MMOL/L (3.5-5.1)
[2021-02-12] MEDS: fentaNYL INJ 5,000 MCG in SODIUM CHLORIDE 0.9% 150 ML IV PRN (07:19)
[2021-02-12] MEDS: ENOXAPARIN 150 MG/ML SYRINGE SUBCUT SCH ×2 (08:52→21:53)
[2021-02-12] MEDS: FAMOTIDINE 20 MG TABLET PO SCH ×2 (08:53→21:53)
[2021-02-12] MEDS: ASCORBIC ACID 500 MG TABLET PO SCH ×2 (08:53→21:53)
[2021-02-12] MEDS: CHOLECALCIFEROL 5,000 UNIT TABLET PO SCH ×2 (08:53→21:53)
[2021-02-12] MEDS: ZINC GLUCONATE 50 MG TABLET PO SCH (08:54)
[2021-02-12] MEDS: MIDAZOLAM 100 MG in SODIUM CHLORIDE 0.9% 80 ML IV PRN ×2 (12:05→19:49)
[2021-02-12] MEDS: MELATONIN 3 MG TABLET PO SCH (21:53)
[2021-02-12] MEDS: ROCURONIUM 1,000 MG in SODIUM CHLORIDE 0.9% 175 ML IV PRN (23:00)
[2021-02-13] MEDS: INSULIN REGULAR 100 UNIT/ML SUBCUT SCH ×4 (00:29→17:07)
[2021-02-13] MEDS: fentaNYL INJ 5,000 MCG in SODIUM CHLORIDE 0.9% 150 ML IV PRN ×2 (04:10→21:45)
[2021-02-13 04:29] LABS: ABG Base Excess 4.3 MMOL/L (-2.5-2.5); ABG HCO3 31.1 MMOL/L (20-26); ABG Oxygen Saturation 96.7 % (95-100); ABG PCO2 57.9 MM HG (35-48); ABG PH 7.348 (7.35-7.45); ABG PO2 97.9 MM HG (80-95); ABG TCO2 32.9 MMOL/L (23-27)
[2021-02-13 04:31] LABS: Basophils % 0.2 % (0.0-0.8); Hematocrit 33.6 VOL% (42.0-52.0); Hemoglobin 10.3 GM/DL (14.0-18.0); Immature Granulocytes % 3.9 %; Immature Granulocytes Absolute 0.36 #; Lymphocytes # 0.8 10*3/uL (1.4-4.0); Lymphocytes % 8.2 % (21.2-54.2); Mean Corpuscular HGB Conc 30.7 GM/DL (32-36); Mean Corpuscular Volume 98.2 FL (87-102); Mean Platelet Volume 11.1 FL (9.6-12.0); Monocytes % 7.2 % (1.7-12.7); Neutrophils % 80.5 % (38.7-73.9); Platelet Count 192 T/CUMM (130-400); Red Blood Count 3.42 MC/CUMM (3.8-5.5); Red Cell Distribution Width 13.5 % (9.3-17.3); White Blood Count 9.1 T/CUMM (4-12)
[2021-02-13 04:51] LABS: Albumin 2.2 G/DL (3.4-5.0); Bilirubin,Total 0.6 MG/DL (0.20-1.00); Calcium 8.6 MG/DL (8.5-10.1); Potassium 4.9 MMOL/L (3.5-5.1); Total Protein 6.4 G/DL (6.4-8.2)
[2021-02-13] MEDS: methylPREDNISolone SOD SUC 40 MG/1 ML VIAL IV SCH ×3 (06:07→21:44)
[2021-02-13] MEDS: MIDAZOLAM 100 MG in SODIUM CHLORIDE 0.9% 80 ML IV PRN ×3 (06:45→20:02)
[2021-02-13] MEDS: ENOXAPARIN 150 MG/ML SYRINGE SUBCUT SCH ×2 (08:36→20:59)
[2021-02-13] MEDS: FAMOTIDINE 20 MG TABLET PO SCH ×2 (08:37→20:57)
[2021-02-13] MEDS: ASCORBIC ACID 500 MG TABLET PO SCH ×2 (08:37→20:57)
[2021-02-13] MEDS: CHOLECALCIFEROL 5,000 UNIT TABLET PO SCH ×2 (08:37→20:58)
[2021-02-13] MEDS: ZINC GLUCONATE 50 MG TABLET PO SCH (08:37)
[2021-02-13] MEDS ORDERED: amLODIPine 5 MG TABLET PO ONE (12:00)
[2021-02-13] MEDS: MELATONIN 3 MG TABLET PO SCH (20:57)
[2021-02-14] MEDS: INSULIN REGULAR 100 UNIT/ML SUBCUT SCH ×4 (00:10→17:39)
[2021-02-14] MEDS: ALPRAZolam 0.5 MG TABLET PO PRN (00:49)
[2021-02-14] MEDS: MIDAZOLAM 100 MG in SODIUM CHLORIDE 0.9% 80 ML IV PRN ×3 (03:05→19:34)
[2021-02-14 05:09] LABS: Basophils % 0.3 % (0.0-0.8); Eosinophils # 0.1 10*3/uL (0.0-0.87); Eosinophils % 0.6 % (0.00-10.9); Hematocrit 32.5 VOL% (42.0-52.0); Hemoglobin 10.4 GM/DL (14.0-18.0); Immature Granulocytes % 4.2 %; Immature Granulocytes Absolute 0.44 #; Lymphocytes # 0.9 10*3/uL (1.4-4.0); Lymphocytes % 8.8 % (21.2-54.2); Mean Corpuscular Volume 98.2 FL (87-102); Mean Platelet Volume 11.4 FL (9.6-12.0); Monocytes % 6.6 % (1.7-12.7); Neutrophils % 79.5 % (38.7-73.9); Platelet Count 187 T/CUMM (130-400); Red Blood Count 3.31 MC/CUMM (3.8-5.5); Red Cell Distribution Width 13.2 % (9.3-17.3); White Blood Count 10.5 T/CUMM (4-12)
[2021-02-14 05:16] LABS: ABG Base Excess 5.4 MMOL/L (-2.5-2.5); ABG HCO3 32.8 MMOL/L (20-26); ABG PCO2 62.4 MM HG (35-48); ABG PH 7.338 (7.35-7.45); ABG PO2 101.7 MM HG (80-95); ABG TCO2 34.7 MMOL/L (23-27)
[2021-02-14 05:24] LABS: Calcium 8.7 MG/DL (8.5-10.1); Osmolality,Calculated 294.3 MOS/KG (273-304); Potassium 4.8 MMOL/L (3.5-5.1)
[2021-02-14 05:46] LABS: Ferritin 1418.5 ng/mL (26-388)
[2021-02-14] MEDS: methylPREDNISolone SOD SUC 40 MG/1 ML VIAL IV SCH ×3 (06:15→22:27)
[2021-02-14] MEDS: ASCORBIC ACID 500 MG TABLET PO SCH ×2 (08:14→22:26)
[2021-02-14] MEDS: FAMOTIDINE 20 MG TABLET PO SCH ×2 (08:14→22:26)
[2021-02-14] MEDS: CHOLECALCIFEROL 5,000 UNIT TABLET PO SCH ×2 (08:14→22:26)
[2021-02-14] MEDS: ZINC GLUCONATE 50 MG TABLET PO SCH (08:14)
[2021-02-14] MEDS: ENOXAPARIN 150 MG/ML SYRINGE SUBCUT SCH ×2 (08:15→22:26)
[2021-02-14] MEDS: MULTIVITAMIN LIQUID (CENTRUM) 60 ML BOTTLE PO SCH (08:16)
[2021-02-14] MEDS ORDERED: amLODIPine 5 MG TABLET PO SCH (09:00)
[2021-02-14] MEDS: fentaNYL INJ 5,000 MCG in SODIUM CHLORIDE 0.9% 150 ML IV PRN ×3 (09:06→22:03)
[2021-02-14] MEDS: POLYETHYLENE GLYCOL POWDER 17 GM PACK PO SCH (11:33)
[2021-02-14] MEDS: MELATONIN 3 MG TABLET PO SCH (22:26)
[2021-02-15] MEDS: INSULIN REGULAR 100 UNIT/ML SUBCUT SCH ×4 (01:11→18:40)
[2021-02-15] MEDS: MIDAZOLAM 100 MG in SODIUM CHLORIDE 0.9% 80 ML IV PRN ×3 (04:19→20:25)
[2021-02-15 04:23] LABS: ABG Base Excess 5.8 MMOL/L (-2.5-2.5); ABG HCO3 29.6 MMOL/L (20-26); ABG Oxygen Saturation 96.5 % (95-100); ABG PCO2 60.8 MM HG (35-48); ABG PH 7.353 (7.35-7.45); ABG PO2 95.4 MM HG (80-95); ABG TCO2 29.2 MMOL/L (23-27)
[2021-02-15 04:29] LABS: Basophils % 0.4 % (0.0-0.8); Eosinophils # 0.3 10*3/uL (0.0-0.87); Eosinophils % 3.7 % (0.00-10.9); Hematocrit 36.9 VOL% (42.0-52.0); Immature Granulocytes Absolute 0.08 #; Lymphocytes # 1.9 10*3/uL (1.4-4.0); Lymphocytes % 23.1 % (21.2-54.2); Mean Corpuscular HGB Conc 32.5 GM/DL (32-36); Mean Corpuscular Volume 96.6 FL (87-102); Mean Platelet Volume 10.8 FL (9.6-12.0); Monocytes % 5.2 % (1.7-12.7); NRBC # 0.02 10*3/uL; Neutrophils % 66.6 % (38.7-73.9); Platelet Count 177 T/CUMM (130-400); Red Blood Count 3.82 MC/CUMM (3.8-5.5); Red Cell Distribution Width 15.4 % (9.3-17.3); White Blood Count 8.3 T/CUMM (4-12)
[2021-02-15 04:59] LABS: Calcium 7.3 MG/DL (8.5-10.1); Osmolality,Calculated 287.3 MOS/KG (273-304); Potassium 3.7 MMOL/L (3.5-5.1)
[2021-02-15] MEDS: fentaNYL INJ 5,000 MCG in SODIUM CHLORIDE 0.9% 150 ML IV PRN ×2 (06:30→16:30)
[2021-02-15] MEDS: methylPREDNISolone SOD SUC 40 MG/1 ML VIAL IV SCH ×3 (06:55→21:01)
[2021-02-15] MEDS: MULTIVITAMIN LIQUID (CENTRUM) 60 ML BOTTLE PO SCH (08:20)
[2021-02-15] MEDS: ENOXAPARIN 150 MG/ML SYRINGE SUBCUT SCH ×2 (08:57→20:51)
[2021-02-15] MEDS: POLYETHYLENE GLYCOL POWDER 17 GM PACK PO SCH (08:57)
[2021-02-15] MEDS: CHOLECALCIFEROL 5,000 UNIT TABLET PO SCH ×2 (08:58→20:50)
[2021-02-15] MEDS: amLODIPine 10 MG TABLET PO SCH (08:58)
[2021-02-15] MEDS: ASCORBIC ACID 500 MG TABLET PO SCH ×2 (08:58→20:50)
[2021-02-15] MEDS: ZINC GLUCONATE 50 MG TABLET PO SCH (08:58)
[2021-02-15] MEDS: FAMOTIDINE 20 MG TABLET PO SCH ×2 (08:58→20:50)
[2021-02-15] MEDS: MELATONIN 3 MG TABLET PO SCH (20:50)
[2021-02-15] MEDS: LACTULOSE 20 GM/30 ML UDCUP PO PRN (20:50)
[2021-02-15] MEDS: QUEtiapine 25 MG TABLET PO SCH (20:50)
[2021-02-16] MEDS: INSULIN REGULAR 100 UNIT/ML SUBCUT SCH ×4 (00:19→17:37)
[2021-02-16] MEDS: fentaNYL INJ 5,000 MCG in SODIUM CHLORIDE 0.9% 150 ML IV PRN ×3 (00:39→20:45)
[2021-02-16] MEDS: MIDAZOLAM 100 MG in SODIUM CHLORIDE 0.9% 80 ML IV PRN ×3 (03:45→19:50)
[2021-02-16 04:45] LABS: ABG Base Excess 4.7 MMOL/L (-2.5-2.5); ABG HCO3 28.6 MMOL/L (20-26); ABG Oxygen Saturation 92.8 % (95-100); ABG PCO2 54.8 MM HG (35-48); ABG PH 7.366 (7.35-7.45); ABG PO2 70.9 MM HG (80-95); ABG TCO2 28.5 MMOL/L (23-27)
[2021-02-16 04:50] LABS: Basophils % 0.2 % (0.0-0.8); Eosinophils # 0.1 10*3/uL (0.0-0.87); Eosinophils % 0.4 % (0.00-10.9); Hematocrit 31.5 VOL% (42.0-52.0); Hemoglobin 10.3 GM/DL (14.0-18.0); Immature Granulocytes % 5.6 %; Immature Granulocytes Absolute 0.76 #; Lymphocytes # 1.2 10*3/uL (1.4-4.0); Lymphocytes % 8.9 % (21.2-54.2); Mean Corpuscular HGB Conc 32.7 GM/DL (32-36); Mean Corpuscular Volume 95.5 FL (87-102); Mean Platelet Volume 10.8 FL (9.6-12.0); Monocytes % 3.7 % (1.7-12.7); Neutrophils % 81.2 % (38.7-73.9); Platelet Count 184 T/CUMM (130-400); Red Cell Distribution Width 13.1 % (9.3-17.3); White Blood Count 13.7 T/CUMM (4-12)
[2021-02-16 05:10] LABS: Hypochromasia 1+; Lymphocytes 11 % (20-55); Microcytosis 1+; Platelet Estimate Adequate; Segmented Neutrophils 81 % (50-85); Total Cells Counted 100
[2021-02-16 05:15] LABS: Calcium 8.8 MG/DL (8.5-10.1); Osmolality,Calculated 288.4 MOS/KG (273-304); Potassium 4.4 MMOL/L (3.5-5.1)
[2021-02-16] MEDS: methylPREDNISolone SOD SUC 40 MG/1 ML VIAL IV SCH ×3 (05:28→21:04)
[2021-02-16] MEDS: amLODIPine 10 MG TABLET PO SCH (08:42)
[2021-02-16] MEDS: MULTIVITAMIN LIQUID (CENTRUM) 60 ML BOTTLE PO SCH (08:42)
[2021-02-16] MEDS: POLYETHYLENE GLYCOL POWDER 17 GM PACK PO SCH (08:42)
[2021-02-16] MEDS: ENOXAPARIN 150 MG/ML SYRINGE SUBCUT SCH ×2 (08:42→20:58)
[2021-02-16] MEDS: FAMOTIDINE 20 MG TABLET PO SCH ×2 (08:44→20:58)
[2021-02-16] MEDS: CHOLECALCIFEROL 5,000 UNIT TABLET PO SCH ×2 (08:44→20:58)
[2021-02-16] MEDS: ZINC GLUCONATE 50 MG TABLET PO SCH (08:44)
[2021-02-16] MEDS: ASCORBIC ACID 500 MG TABLET PO SCH ×2 (08:44→20:58)
[2021-02-16 09:04] LABS: ABG Base Excess 4.7 MMOL/L (-2.5-2.5); ABG HCO3 28.6 MMOL/L (20-26); ABG Oxygen Saturation 96.2 % (95-100); ABG PCO2 54.8 MM HG (35-48); ABG PH 7.365 (7.35-7.45); ABG PO2 91.7 MM HG (80-95); ABG TCO2 28.4 MMOL/L (23-27)
[2021-02-16] MEDS: METOCLOPRAMIDE 10 MG/2 ML VIAL IV SCH ×3 (09:19→20:57)
[2021-02-16] MEDS: FLUCONAZOLE 40 MG/ML 35 ML/BOTTLE PO SCH (14:57)
[2021-02-16] MEDS: QUEtiapine 25 MG TABLET PO SCH (20:58)
[2021-02-16] MEDS: MELATONIN 3 MG TABLET PO SCH (20:58)
[2021-02-17] MEDS: INSULIN REGULAR 100 UNIT/ML SUBCUT SCH ×4 (00:19→17:51)
[2021-02-17] MEDS: fentaNYL INJ 5,000 MCG in SODIUM CHLORIDE 0.9% 150 ML IV PRN ×2 (01:20→11:30)
[2021-02-17] MEDS: METOCLOPRAMIDE 10 MG/2 ML VIAL IV SCH ×4 (01:51→21:59)
[2021-02-17] MEDS: MIDAZOLAM 100 MG in SODIUM CHLORIDE 0.9% 80 ML IV PRN ×2 (02:47→14:00)
[2021-02-17 04:20] LABS: ABG Base Excess 3.7 MMOL/L (-2.5-2.5); ABG HCO3 28.9 MMOL/L (20-26); ABG Oxygen Saturation 96.6 % (95-100); ABG PCO2 46.6 MM HG (35-48); ABG PH 7.411 (7.35-7.45); ABG TCO2 30.4 MMOL/L (23-27)
[2021-02-17 04:35] LABS: Basophils % 0.2 % (0.0-0.8); Eosinophils % 0.2 % (0.00-10.9); Hematocrit 30.9 VOL% (42.0-52.0); Immature Granulocytes % 7.2 %; Immature Granulocytes Absolute 0.92 #; Lymphocytes # 1.2 10*3/uL (1.4-4.0); Lymphocytes % 9.6 % (21.2-54.2); Mean Corpuscular HGB Conc 32.4 GM/DL (32-36); Mean Corpuscular Volume 94.5 FL (87-102); Mean Platelet Volume 10.5 FL (9.6-12.0); Monocytes % 4.7 % (1.7-12.7); NRBC # 0.02 10*3/uL; Neutrophils % 78.1 % (38.7-73.9); Platelet Count 190 T/CUMM (130-400); Red Blood Count 3.27 MC/CUMM (3.8-5.5); Red Cell Distribution Width 13.2 % (9.3-17.3); White Blood Count 12.8 T/CUMM (4-12)
[2021-02-17 04:45] LABS: Calcium 8.6 MG/DL (8.5-10.1); Osmolality,Calculated 289.3 MOS/KG (273-304); Potassium 4.2 MMOL/L (3.5-5.1)
[2021-02-17] MEDS: methylPREDNISolone SOD SUC 40 MG/1 ML VIAL IV SCH ×3 (05:34→21:59)
[2021-02-17 06:40] LABS: Eosinophils 1 % (0-10); Lymphocytes 10 % (20-55); Platelet Estimate Normal; Segmented Neutrophils 83 % (50-85); Total Cells Counted 100
[2021-02-17] MEDS: MULTIVITAMIN LIQUID (CENTRUM) 60 ML BOTTLE PO SCH (08:22)
[2021-02-17] MEDS: POLYETHYLENE GLYCOL POWDER 17 GM PACK PO SCH (08:23)
[2021-02-17] MEDS: ZINC GLUCONATE 50 MG TABLET PO SCH (08:23)
[2021-02-17] MEDS: CHOLECALCIFEROL 5,000 UNIT TABLET PO SCH ×2 (08:23→21:58)
[2021-02-17] MEDS: FAMOTIDINE 20 MG TABLET PO SCH ×2 (08:23→21:58)
[2021-02-17] MEDS: ENOXAPARIN 150 MG/ML SYRINGE SUBCUT SCH ×2 (08:23→21:58)
[2021-02-17] MEDS: amLODIPine 10 MG TABLET PO SCH (08:23)
[2021-02-17] MEDS: ASCORBIC ACID 500 MG TABLET PO SCH ×2 (08:23→21:58)
[2021-02-17] MEDS: CEFEPIME 1,000 MG in SODIUM CHLORIDE 0.9% 100 ML IV SCH (09:03)
[2021-02-17] MEDS: FLUCONAZOLE 40 MG/ML 35 ML/BOTTLE PO SCH (09:59)
[2021-02-17 13:33] LABS: Risk Ratio 7.3; VLDL Cholesterol 56.6 MG/DL
[2021-02-17] MEDS ORDERED: ACETYLCYSTEINE 20% 800 MG/4 ML VIAL RESP TX SCH (15:00)
[2021-02-17] MEDS: ALBUTEROL/IPRATROPIUM 3 ML NEB RESP TX SCH ×3 (15:19→23:51)
[2021-02-17] MEDS: DORNASE ALFA 2.5 MG/2.5 ML VIAL RESP TX SCH (19:00)
[2021-02-17] MEDS ORDERED: ASPIRIN EC 325 MG TABLET PO ONE (20:00)
[2021-02-17] MEDS: MELATONIN 3 MG TABLET PO SCH (21:58)
[2021-02-17] MEDS: QUEtiapine 25 MG TABLET PO SCH (21:59)
[2021-02-18] MEDS: MIDAZOLAM 100 MG in SODIUM CHLORIDE 0.9% 80 ML IV PRN ×3 (00:40→16:36)
[2021-02-18] MEDS: INSULIN REGULAR 100 UNIT/ML SUBCUT SCH ×5 (01:53→23:40)
[2021-02-18] MEDS: METOCLOPRAMIDE 10 MG/2 ML VIAL IV SCH ×4 (02:06→20:16)
[2021-02-18] MEDS: fentaNYL INJ 5,000 MCG in SODIUM CHLORIDE 0.9% 150 ML IV PRN ×2 (03:00→19:02)
[2021-02-18 03:56] LABS: ABG Base Excess 3.4 MMOL/L (-2.5-2.5); ABG HCO3 28.9 MMOL/L (20-26); ABG Oxygen Saturation 98.3 % (95-100); ABG PCO2 48.1 MM HG (35-48); ABG PH 7.396 (7.35-7.45); ABG PO2 150.5 MM HG (80-95); ABG TCO2 30.3 MMOL/L (23-27)
[2021-02-18 04:26] LABS: Basophils % 0.2 % (0.0-0.8); Eosinophils % 0.1 % (0.00-10.9); Hematocrit 32.1 VOL% (42.0-52.0); Hemoglobin 10.2 GM/DL (14.0-18.0); Immature Granulocytes % 6.6 %; Immature Granulocytes Absolute 0.78 #; Lymphocytes % 8.2 % (21.2-54.2); Mean Corpuscular HGB Conc 31.8 GM/DL (32-36); Mean Corpuscular Volume 96.4 FL (87-102); Mean Platelet Volume 10.8 FL (9.6-12.0); Monocytes % 5.2 % (1.7-12.7); Neutrophils % 79.7 % (38.7-73.9); Platelet Count 203 T/CUMM (130-400); Red Blood Count 3.33 MC/CUMM (3.8-5.5); Red Cell Distribution Width 13.9 % (9.3-17.3); White Blood Count 11.9 T/CUMM (4-12)
[2021-02-18] MEDS: ALBUTEROL/IPRATROPIUM 3 ML NEB RESP TX SCH ×5 (05:10→19:00)
[2021-02-18 06:07] LABS: Band Neutrophils 1 % (0-10); Lymphocytes 7 % (20-55); Platelet Estimate Normal; Segmented Neutrophils 90 % (50-85); Total Cells Counted 100
[2021-02-18 06:08] LABS: Polychromasia Slight; Stomatocytes Few
[2021-02-18] MEDS: methylPREDNISolone SOD SUC 40 MG/1 ML VIAL IV SCH ×2 (07:00→15:24)
[2021-02-18 07:14] LABS: Calcium 8.5 MG/DL (8.5-10.1); Osmolality,Calculated 290.3 MOS/KG (273-304); Potassium 4.6 MMOL/L (3.5-5.1)
[2021-02-18] MEDS: DORNASE ALFA 2.5 MG/2.5 ML VIAL RESP TX SCH ×2 (07:26→19:00)
[2021-02-18] MEDS: FAMOTIDINE 20 MG TABLET PO SCH ×2 (08:16→20:13)
[2021-02-18] MEDS: amLODIPine 10 MG TABLET PO SCH (08:16)
[2021-02-18] MEDS: CEFEPIME 1,000 MG in SODIUM CHLORIDE 0.9% 100 ML IV SCH (08:16)
[2021-02-18] MEDS: ASCORBIC ACID 500 MG TABLET PO SCH ×2 (08:16→20:13)
[2021-02-18] MEDS: POLYETHYLENE GLYCOL POWDER 17 GM PACK PO SCH (08:16)
[2021-02-18] MEDS: FLUCONAZOLE 40 MG/ML 35 ML/BOTTLE PO SCH (08:16)
[2021-02-18] MEDS: ZINC GLUCONATE 50 MG TABLET PO SCH (08:16)
[2021-02-18] MEDS: ENOXAPARIN 150 MG/ML SYRINGE SUBCUT SCH ×2 (08:16→20:12)
[2021-02-18] MEDS: MULTIVITAMIN LIQUID (CENTRUM) 60 ML BOTTLE PO SCH (08:16)
[2021-02-18] MEDS: CHOLECALCIFEROL 5,000 UNIT TABLET PO SCH ×2 (08:16→20:13)
[2021-02-18] MEDS ORDERED: ASPIRIN EC 325 MG TABLET PO SCH (09:00)
[2021-02-18] MEDS ORDERED: BISACODYL 10 MG SUPP RECTAL ONE (12:00)
[2021-02-18] MEDS: FENOFIBRATE 145 MG TABLET PO SCH (12:00)
[2021-02-18] MEDS ORDERED: FUROSEMIDE 20 MG/2 ML VIAL IV SCH (16:00)
[2021-02-18] MEDS ORDERED: HALOPERIDOL 5 MG/ML AMP IM PRN (17:36)
[2021-02-18] MEDS ORDERED: methylPREDNISolone SOD SUC 125 MG/2 ML VIAL IM ONE (18:25)
[2021-02-18] MEDS ORDERED: FUROSEMIDE 20 MG/2 ML VIAL IV ONE (18:29)
[2021-02-18 18:34] LABS: ABG Base Excess 1.6 MMOL/L (-2.5-2.5); ABG HCO3 25.7 MMOL/L (20-26); ABG Oxygen Saturation 92.3 % (95-100); ABG PCO2 55.2 MM HG (35-48); ABG PH 7.325 (7.35-7.45); ABG PO2 71.7 MM HG (80-95); ABG TCO2 25.7 MMOL/L (23-27)
[2021-02-18] MEDS: MELATONIN 3 MG TABLET PO SCH (20:12)
[2021-02-18] MEDS: QUEtiapine 25 MG TABLET PO SCH (20:13)
[2021-02-18] MEDS: ATORVASTATIN 20 MG TABLET PO SCH (20:16)
[2021-02-18] MEDS ORDERED: methylPREDNISolone SOD SUC 40 MG/1 ML VIAL IV SCH (23:30)
[2021-02-19] MEDS: MIDAZOLAM 100 MG in SODIUM CHLORIDE 0.9% 80 ML IV PRN ×4 (00:07→23:47)
[2021-02-19] MEDS: ALBUTEROL/IPRATROPIUM 3 ML NEB RESP TX SCH ×7 (00:32→23:14)
[2021-02-19] MEDS: fentaNYL INJ 5,000 MCG in SODIUM CHLORIDE 0.9% 150 ML IV PRN ×3 (01:39→18:24)
[2021-02-19] MEDS: methylPREDNISolone SOD SUC 40 MG/1 ML VIAL IV SCH ×3 (02:41→18:05)
[2021-02-19] MEDS: METOCLOPRAMIDE 10 MG/2 ML VIAL IV SCH ×4 (02:41→21:16)
[2021-02-19 05:02] LABS: ABG Base Excess 2.2 MMOL/L (-2.5-2.5); ABG HCO3 26.4 MMOL/L (20-26); ABG Oxygen Saturation 98.2 % (95-100); ABG PCO2 55.1 MM HG (35-48); ABG PH 7.333 (7.35-7.45); ABG TCO2 26.5 MMOL/L (23-27)
[2021-02-19 05:14] LABS: Basophils % 0.2 % (0.0-0.8); Hemoglobin 10.7 GM/DL (14.0-18.0); Immature Granulocytes % 1.1 %; Immature Granulocytes Absolute 0.28 #; Lymphocytes # 0.8 10*3/uL (1.4-4.0); Mean Corpuscular HGB Conc 31.5 GM/DL (32-36); Mean Corpuscular Volume 96.3 FL (87-102); Mean Platelet Volume 10.7 FL (9.6-12.0); Monocytes % 4.7 % (1.7-12.7); Platelet Count 198 T/CUMM (130-400); Red Blood Count 3.53 MC/CUMM (3.8-5.5); Red Cell Distribution Width 14.1 % (9.3-17.3); White Blood Count 26.5 T/CUMM (4-12)
[2021-02-19 05:33] LABS: Calcium 8.4 MG/DL (8.5-10.1); Osmolality,Calculated 290.3 MOS/KG (273-304); Potassium 4.3 MMOL/L (3.5-5.1)
[2021-02-19 05:35] LABS: Band Neutrophils 30 % (0-10); Lymphocytes 2 % (20-55); Metamyelocytes 4 %; Platelet Estimate Normal; Segmented Neutrophils 61 % (50-85); Smudge Cells Few; Total Cells Counted 100
[2021-02-19 05:36] LABS: Anisocytosis 1+; Macrocytosis Slight
[2021-02-19] MEDS: INSULIN REGULAR 100 UNIT/ML SUBCUT SCH ×4 (06:10→23:28)
[2021-02-19] MEDS: FUROSEMIDE 20 MG/2 ML VIAL IV SCH ×2 (06:34→18:13)
[2021-02-19] MEDS: DORNASE ALFA 2.5 MG/2.5 ML VIAL RESP TX SCH ×2 (07:33→19:47)
[2021-02-19] MEDS: CHOLECALCIFEROL 5,000 UNIT TABLET PO SCH ×2 (08:29→21:17)
[2021-02-19] MEDS: ZINC GLUCONATE 50 MG TABLET PO SCH (08:29)
[2021-02-19] MEDS: FAMOTIDINE 20 MG TABLET PO SCH ×2 (08:29→21:17)
[2021-02-19] MEDS: ASCORBIC ACID 500 MG TABLET PO SCH ×2 (08:29→21:17)
[2021-02-19] MEDS: FENOFIBRATE 145 MG TABLET PO SCH (08:30)
[2021-02-19] MEDS: POLYETHYLENE GLYCOL POWDER 17 GM PACK PO SCH (08:30)
[2021-02-19] MEDS: MULTIVITAMIN LIQUID (CENTRUM) 60 ML BOTTLE PO SCH (08:31)
[2021-02-19] MEDS: ENOXAPARIN 150 MG/ML SYRINGE SUBCUT SCH ×2 (08:31→21:16)
[2021-02-19] MEDS: CEFEPIME 1,000 MG in SODIUM CHLORIDE 0.9% 100 ML IV SCH (08:31)
[2021-02-19] MEDS: amLODIPine 10 MG TABLET PO SCH (09:24)
[2021-02-19] MEDS: FLUCONAZOLE 40 MG/ML 35 ML/BOTTLE PO SCH (09:33)
[2021-02-19] MEDS ORDERED: SODIUM CHLORIDE 0.9% IV ONE (10:00)
[2021-02-19] MEDS ORDERED: VANCOMYCIN IV ONE (10:00)
[2021-02-19] MEDS: ATORVASTATIN 20 MG TABLET PO SCH (21:16)
[2021-02-19] MEDS: MELATONIN 3 MG TABLET PO SCH (21:16)
[2021-02-19] MEDS: QUEtiapine 25 MG TABLET PO SCH (21:17)
[2021-02-19] MEDS ORDERED: VANCOMYCIN INJ 2,500 MG in SODIUM CHLORIDE 0.9% 500 ML IV SCH (22:00)
[2021-02-20] MEDS: fentaNYL INJ 5,000 MCG in SODIUM CHLORIDE 0.9% 150 ML IV PRN ×3 (01:35→21:33)
[2021-02-20] MEDS: methylPREDNISolone SOD SUC 40 MG/1 ML VIAL IV SCH ×3 (02:54→17:27)
[2021-02-20] MEDS: METOCLOPRAMIDE 10 MG/2 ML VIAL IV SCH ×4 (02:54→21:44)
[2021-02-20] MEDS: ALBUTEROL/IPRATROPIUM 3 ML NEB RESP TX SCH ×6 (03:12→23:40)
[2021-02-20 05:06] LABS: ABG Base Excess 5.2 MMOL/L (-2.5-2.5); ABG HCO3 30.2 MMOL/L (20-26); ABG Oxygen Saturation 98.1 % (95-100); ABG PCO2 46.5 MM HG (35-48); ABG PO2 130.2 MM HG (80-95); ABG TCO2 31.6 MMOL/L (23-27)
[2021-02-20 05:25] LABS: Basophils % 0.2 % (0.0-0.8); Eosinophils % 0.2 % (0.00-10.9); Hematocrit 29.6 VOL% (42.0-52.0); Hemoglobin 9.4 GM/DL (14.0-18.0); Immature Granulocytes % 2.5 %; Immature Granulocytes Absolute 0.32 #; Lymphocytes # 1.2 10*3/uL (1.4-4.0); Lymphocytes % 8.8 % (21.2-54.2); Mean Corpuscular HGB Conc 31.8 GM/DL (32-36); Mean Corpuscular Volume 97.7 FL (87-102); Monocytes % 5.8 % (1.7-12.7); Neutrophils % 82.5 % (38.7-73.9); Platelet Count 182 T/CUMM (130-400); Red Blood Count 3.03 MC/CUMM (3.8-5.5); Red Cell Distribution Width 14.5 % (9.3-17.3)
[2021-02-20 05:44] LABS: Osmolality,Calculated 293.8 MOS/KG (273-304)
[2021-02-20] MEDS: INSULIN REGULAR 100 UNIT/ML SUBCUT SCH ×4 (07:01→23:53)
[2021-02-20] MEDS: FUROSEMIDE 20 MG/2 ML VIAL IV SCH ×2 (07:01→17:27)
[2021-02-20] MEDS: DORNASE ALFA 2.5 MG/2.5 ML VIAL RESP TX SCH ×2 (07:05→18:52)
[2021-02-20] MEDS: MULTIVITAMIN LIQUID (CENTRUM) 60 ML BOTTLE PO SCH (08:09)
[2021-02-20] MEDS: ENOXAPARIN 150 MG/ML SYRINGE SUBCUT SCH ×2 (08:10→21:44)
[2021-02-20] MEDS: FAMOTIDINE 20 MG TABLET PO SCH ×2 (08:11→21:45)
[2021-02-20] MEDS: ASCORBIC ACID 500 MG TABLET PO SCH ×2 (08:11→21:44)
[2021-02-20] MEDS: FENOFIBRATE 145 MG TABLET PO SCH (08:11)
[2021-02-20] MEDS: CHOLECALCIFEROL 5,000 UNIT TABLET PO SCH ×2 (08:11→21:45)
[2021-02-20] MEDS: ZINC GLUCONATE 50 MG TABLET PO SCH (08:11)
[2021-02-20] MEDS: POLYETHYLENE GLYCOL POWDER 17 GM PACK PO SCH (08:11)
[2021-02-20] MEDS: CEFEPIME 1,000 MG in SODIUM CHLORIDE 0.9% 100 ML IV SCH (08:12)
[2021-02-20] MEDS: amLODIPine 10 MG TABLET PO SCH (08:12)
[2021-02-20] MEDS: FLUCONAZOLE 40 MG/ML 35 ML/BOTTLE PO SCH (08:12)
[2021-02-20] MEDS: MIDAZOLAM 100 MG in SODIUM CHLORIDE 0.9% 80 ML IV PRN ×3 (08:29→23:06)
[2021-02-20] MEDS: VANCOMYCIN INJ 2,000 MG in SODIUM CHLORIDE 0.9% 500 ML IV SCH ×2 (09:28→22:23)
[2021-02-20] MEDS: QUEtiapine 25 MG TABLET PO SCH (21:45)
[2021-02-20] MEDS: ATORVASTATIN 20 MG TABLET PO SCH (21:45)
[2021-02-20] MEDS: MELATONIN 3 MG TABLET PO SCH (21:45)
[2021-02-21] MEDS: methylPREDNISolone SOD SUC 40 MG/1 ML VIAL IV SCH ×3 (02:38→17:24)
[2021-02-21] MEDS: METOCLOPRAMIDE 10 MG/2 ML VIAL IV SCH ×4 (02:40→22:02)
[2021-02-21] MEDS: ALBUTEROL/IPRATROPIUM 3 ML NEB RESP TX SCH ×6 (03:26→23:00)
[2021-02-21 04:07] LABS: ABG Base Excess 3.2 MMOL/L (-2.5-2.5); ABG HCO3 28.2 MMOL/L (20-26); ABG Oxygen Saturation 97.6 % (95-100); ABG PCO2 45.1 MM HG (35-48); ABG PH 7.414 (7.35-7.45); ABG PO2 116.9 MM HG (80-95); ABG TCO2 29.6 MMOL/L (23-27)
[2021-02-21 04:08] LABS: Basophils % 0.2 % (0.0-0.8); Eosinophils # 0.1 10*3/uL (0.0-0.87); Eosinophils % 0.5 % (0.00-10.9); Hemoglobin 9.5 GM/DL (14.0-18.0); Immature Granulocytes % 4.3 %; Immature Granulocytes Absolute 0.58 #; Lymphocytes # 1.3 10*3/uL (1.4-4.0); Lymphocytes % 9.4 % (21.2-54.2); Mean Corpuscular HGB Conc 31.7 GM/DL (32-36); Mean Corpuscular Volume 96.8 FL (87-102); Mean Platelet Volume 10.7 FL (9.6-12.0); Monocytes % 6.4 % (1.7-12.7); NRBC # 0.02 10*3/uL; Neutrophils % 79.2 % (38.7-73.9); Platelet Count 192 T/CUMM (130-400); Red Cell Distribution Width 14.6 % (9.3-17.3); White Blood Count 13.5 T/CUMM (4-12)
[2021-02-21 04:32] LABS: Eosinophils 1 % (0-10); Lymphocytes 11 % (20-55); Nucleated Red Blood Cells 1 (0-5); Segmented Neutrophils 83 % (50-85); Total Cells Counted 100
[2021-02-21 04:33] LABS: Calcium 8.3 MG/DL (8.5-10.1); Hypochromasia 1+; Microcytosis 1+; Platelet Estimate Adequate; Potassium 4.2 MMOL/L (3.5-5.1)
[2021-02-21] MEDS: INSULIN REGULAR 100 UNIT/ML SUBCUT SCH ×3 (05:41→17:20)
[2021-02-21] MEDS: MIDAZOLAM 100 MG in SODIUM CHLORIDE 0.9% 80 ML IV PRN ×3 (06:10→21:25)
[2021-02-21] MEDS: FUROSEMIDE 20 MG/2 ML VIAL IV SCH ×2 (06:11→17:24)
[2021-02-21] MEDS: DORNASE ALFA 2.5 MG/2.5 ML VIAL RESP TX SCH ×2 (07:13→18:43)
[2021-02-21] MEDS: FLUCONAZOLE 40 MG/ML 35 ML/BOTTLE PO SCH (08:00)
[2021-02-21] MEDS: POLYETHYLENE GLYCOL POWDER 17 GM PACK PO SCH (08:01)
[2021-02-21] MEDS: ZINC GLUCONATE 50 MG TABLET PO SCH (08:01)
[2021-02-21] MEDS: FAMOTIDINE 20 MG TABLET PO SCH ×2 (08:01→22:03)
[2021-02-21] MEDS: FENOFIBRATE 145 MG TABLET PO SCH (08:01)
[2021-02-21] MEDS: ASCORBIC ACID 500 MG TABLET PO SCH ×2 (08:01→22:03)
[2021-02-21] MEDS: CHOLECALCIFEROL 5,000 UNIT TABLET PO SCH ×2 (08:02→22:03)
[2021-02-21] MEDS: ENOXAPARIN 150 MG/ML SYRINGE SUBCUT SCH ×2 (08:02→22:02)
[2021-02-21] MEDS: MULTIVITAMIN LIQUID (CENTRUM) 60 ML BOTTLE PO SCH (08:02)
[2021-02-21] MEDS: amLODIPine 10 MG TABLET PO SCH (08:02)
[2021-02-21 09:12] LABS: ABG Base Excess 2.7 MMOL/L (-2.5-2.5); ABG HCO3 26.8 MMOL/L (20-26); ABG Oxygen Saturation 97.7 % (95-100); ABG PCO2 45.9 MM HG (35-48); ABG PH 7.395 (7.35-7.45); ABG TCO2 25.6 MMOL/L (23-27)
[2021-02-21] MEDS ORDERED: ROCURONIUM 100 MG/10 ML VIAL IV ONE ×3 (10:07→10:18)
[2021-02-21] MEDS: VANCOMYCIN INJ 2,000 MG in SODIUM CHLORIDE 0.9% 500 ML IV SCH (15:25)
[2021-02-21] MEDS: fentaNYL INJ 5,000 MCG in SODIUM CHLORIDE 0.9% 150 ML IV PRN (15:36)
[2021-02-21] MEDS: ATORVASTATIN 20 MG TABLET PO SCH (22:03)
[2021-02-21] MEDS: MELATONIN 3 MG TABLET PO SCH (22:03)
[2021-02-21] MEDS: QUEtiapine 25 MG TABLET PO SCH (22:04)
[2021-02-22] MEDS: INSULIN REGULAR 100 UNIT/ML SUBCUT SCH ×4 (00:23→17:51)
[2021-02-22] MEDS: METOCLOPRAMIDE 10 MG/2 ML VIAL IV SCH ×3 (02:54→14:09)
[2021-02-22] MEDS: ALBUTEROL/IPRATROPIUM 3 ML NEB RESP TX SCH ×6 (03:00→23:00)
[2021-02-22] MEDS: methylPREDNISolone SOD SUC 40 MG/1 ML VIAL IV SCH ×3 (03:05→17:51)
[2021-02-22 04:29] LABS: ABG Base Excess 2.4 MMOL/L (-2.5-2.5); ABG HCO3 26.6 MMOL/L (20-26); ABG Oxygen Saturation 98.2 % (95-100); ABG PH 7.392 (7.35-7.45); ABG TCO2 24.5 MMOL/L (23-27)
[2021-02-22] MEDS: MIDAZOLAM 100 MG in SODIUM CHLORIDE 0.9% 80 ML IV PRN ×3 (04:30→19:35)
[2021-02-22 04:33] LABS: Basophils % 0.1 % (0.0-0.8); Eosinophils # 0.1 10*3/uL (0.0-0.87); Eosinophils % 0.8 % (0.00-10.9); Hematocrit 29.4 VOL% (42.0-52.0); Hemoglobin 9.3 GM/DL (14.0-18.0); Immature Granulocytes % 5.4 %; Immature Granulocytes Absolute 0.76 #; Lymphocytes # 1.3 10*3/uL (1.4-4.0); Lymphocytes % 9.2 % (21.2-54.2); Mean Corpuscular HGB Conc 31.6 GM/DL (32-36); Mean Corpuscular Volume 97.7 FL (87-102); Mean Platelet Volume 10.6 FL (9.6-12.0); Neutrophils % 78.5 % (38.7-73.9); Platelet Count 199 T/CUMM (130-400); Red Blood Count 3.01 MC/CUMM (3.8-5.5); Red Cell Distribution Width 14.6 % (9.3-17.3); White Blood Count 14.1 T/CUMM (4-12)
[2021-02-22 04:46] LABS: Calcium 8.4 MG/DL (8.5-10.1); Osmolality,Calculated 289.4 MOS/KG (273-304); Potassium 3.9 MMOL/L (3.5-5.1)
[2021-02-22 04:58] LABS: Band Neutrophils 1 % (0-10); Eosinophils 1 % (0-10); Hypochromasia 1+; Lymphocytes 12 % (20-55); Microcytosis 1+; Platelet Estimate Adequate; Segmented Neutrophils 79 % (50-85); Total Cells Counted 100
[2021-02-22] MEDS: FUROSEMIDE 20 MG/2 ML VIAL IV SCH ×2 (06:08→09:27)
[2021-02-22] MEDS: DORNASE ALFA 2.5 MG/2.5 ML VIAL RESP TX SCH ×2 (07:42→19:00)
[2021-02-22] MEDS: CHOLECALCIFEROL 5,000 UNIT TABLET PO SCH ×2 (08:10→21:29)
[2021-02-22] MEDS: ASCORBIC ACID 500 MG TABLET PO SCH ×2 (08:10→21:29)
[2021-02-22] MEDS: FENOFIBRATE 145 MG TABLET PO SCH (08:10)
[2021-02-22] MEDS: MULTIVITAMIN LIQUID (CENTRUM) 60 ML BOTTLE PO SCH (08:10)
[2021-02-22] MEDS: POLYETHYLENE GLYCOL POWDER 17 GM PACK PO SCH (08:10)
[2021-02-22] MEDS: FLUCONAZOLE 40 MG/ML 35 ML/BOTTLE PO SCH (08:10)
[2021-02-22] MEDS: FAMOTIDINE 20 MG TABLET PO SCH ×2 (08:10→21:28)
[2021-02-22] MEDS: amLODIPine 10 MG TABLET PO SCH (08:10)
[2021-02-22] MEDS: ENOXAPARIN 150 MG/ML SYRINGE SUBCUT SCH ×2 (08:10→22:57)
[2021-02-22] MEDS: ZINC GLUCONATE 50 MG TABLET PO SCH (08:11)
[2021-02-22] MEDS ORDERED: INFLUENZA VIRUS VACCINE 0.5 ML SYRINGE IM ONE (09:00)
[2021-02-22] MEDS: fentaNYL INJ 5,000 MCG in SODIUM CHLORIDE 0.9% 150 ML IV PRN (10:00)
[2021-02-22] MEDS: MEROPENEM 500 MG in SODIUM CHLORIDE 0.9% 100 ML IV SCH ×3 (10:03→22:57)
[2021-02-22] MEDS: VANCOMYCIN INJ 2,000 MG in SODIUM CHLORIDE 0.9% 500 ML IV SCH (11:17)
[2021-02-22] MEDS: RIFAMPIN 300 MG CAPSULE PO SCH ×2 (14:38→21:29)
[2021-02-22] MEDS: ATORVASTATIN 20 MG TABLET PO SCH (21:28)
[2021-02-22] MEDS: MELATONIN 3 MG TABLET PO SCH (22:16)
[2021-02-22] MEDS: QUEtiapine 25 MG TABLET PO SCH (22:16)
[2021-02-22] MEDS: NEOMYCIN/POLYMYXIN/HC OTIC SOLN 10 ML BOTTLE LEFT EAR SCH (22:57)
[2021-02-22] MEDS ORDERED: METOCLOPRAMIDE 10 MG/2 ML VIAL IV ONE (23:25)
[2021-02-22] MEDS ORDERED: METOCLOPRAMIDE 10 MG/2 ML VIAL ONE (23:27)
[2021-02-23] MEDS: INSULIN REGULAR 100 UNIT/ML SUBCUT SCH ×4 (00:48→18:00)
[2021-02-23] MEDS: methylPREDNISolone SOD SUC 40 MG/1 ML VIAL IV SCH ×3 (02:23→18:20)
[2021-02-23] MEDS: ALBUTEROL/IPRATROPIUM 3 ML NEB RESP TX SCH ×6 (03:00→23:00)
[2021-02-23] MEDS ORDERED: LORazepam 2 MG/1 ML VIAL IV ONE ×2 (03:33→16:52)
[2021-02-23] MEDS: MIDAZOLAM 100 MG in SODIUM CHLORIDE 0.9% 80 ML IV PRN ×3 (03:44→21:00)
[2021-02-23] MEDS: fentaNYL INJ 5,000 MCG in SODIUM CHLORIDE 0.9% 150 ML IV PRN ×2 (03:48→22:28)
[2021-02-23] MEDS: MEROPENEM 500 MG in SODIUM CHLORIDE 0.9% 100 ML IV SCH ×4 (04:00→21:45)
[2021-02-23] MEDS: VANCOMYCIN INJ 2,000 MG in SODIUM CHLORIDE 0.9% 500 ML IV SCH ×2 (04:15→22:50)
[2021-02-23 04:17] LABS: ABG Base Excess 3.5 MMOL/L (-2.5-2.5); ABG HCO3 28.4 MMOL/L (20-26); ABG Oxygen Saturation 91.2 % (95-100); ABG PCO2 44.4 MM HG (35-48); ABG PH 7.424 (7.35-7.45); ABG PO2 61.4 MM HG (80-95); ABG TCO2 29.8 MMOL/L (23-27)
[2021-02-23 04:26] LABS: Basophils % 0.2 % (0.0-0.8); Eosinophils # 0.3 10*3/uL (0.0-0.87); Eosinophils % 2.2 % (0.00-10.9); Hematocrit 33.1 VOL% (42.0-52.0); Hemoglobin 10.5 GM/DL (14.0-18.0); Immature Granulocytes % 8.3 %; Immature Granulocytes Absolute 1.14 #; Lymphocytes # 1.7 10*3/uL (1.4-4.0); Lymphocytes % 12.3 % (21.2-54.2); Mean Corpuscular HGB Conc 31.7 GM/DL (32-36); Mean Corpuscular Volume 96.5 FL (87-102); Monocytes % 8.6 % (1.7-12.7); NRBC # 0.02 10*3/uL; Neutrophils % 68.4 % (38.7-73.9); Platelet Count 216 T/CUMM (130-400); Red Blood Count 3.43 MC/CUMM (3.8-5.5); Red Cell Distribution Width 14.9 % (9.3-17.3); White Blood Count 13.7 T/CUMM (4-12)
[2021-02-23 04:36] LABS: Calcium 8.7 MG/DL (8.5-10.1); Osmolality,Calculated 290.4 MOS/KG (273-304); Potassium 3.7 MMOL/L (3.5-5.1)
[2021-02-23 04:48] LABS: Hypochromasia 1+; Lymphocytes 10 % (20-55); Microcytosis 1+; Platelet Estimate Adequate; Segmented Neutrophils 83 % (50-85); Total Cells Counted 100
[2021-02-23] MEDS ORDERED: SODIUM CHLORIDE 0.9% 1,000 ML IV ONE (07:31)
[2021-02-23] MEDS: DORNASE ALFA 2.5 MG/2.5 ML VIAL RESP TX SCH ×2 (07:35→19:00)
[2021-02-23] MEDS: NOREPINEPHRINE 16 MG in SODIUM CHLORIDE 0.9% 234 ML IV PRN (08:45)
[2021-02-23] MEDS: LORazepam 2 MG/1 ML VIAL IV PRN ×3 (09:20→21:40)
[2021-02-23] MEDS: ENOXAPARIN 150 MG/ML SYRINGE SUBCUT SCH ×2 (11:20→21:22)
[2021-02-23] MEDS: FUROSEMIDE 20 MG/2 ML VIAL IV SCH (11:21)
[2021-02-23] MEDS: ZINC GLUCONATE 50 MG TABLET PO SCH (11:24)
[2021-02-23] MEDS: ASCORBIC ACID 500 MG TABLET PO SCH ×2 (11:24→21:23)
[2021-02-23] MEDS: FAMOTIDINE 20 MG TABLET PO SCH ×2 (11:24→21:22)
[2021-02-23] MEDS: RIFAMPIN 300 MG CAPSULE PO SCH ×2 (11:24→21:22)
[2021-02-23] MEDS: amLODIPine 10 MG TABLET PO SCH (11:25)
[2021-02-23] MEDS: FENOFIBRATE 145 MG TABLET PO SCH (11:25)
[2021-02-23] MEDS: POLYETHYLENE GLYCOL POWDER 17 GM PACK PO SCH (11:25)
[2021-02-23] MEDS: CHOLECALCIFEROL 5,000 UNIT TABLET PO SCH ×2 (11:26→21:22)
[2021-02-23] MEDS: NEOMYCIN/POLYMYXIN/HC OTIC SOLN 10 ML BOTTLE LEFT EAR SCH ×3 (11:30→21:45)
[2021-02-23] MEDS: FLUCONAZOLE 40 MG/ML 35 ML/BOTTLE PO SCH (13:27)
[2021-02-23] MEDS: MULTIVITAMIN LIQUID (CENTRUM) 60 ML BOTTLE PO SCH (13:27)
[2021-02-23] MEDS ORDERED: ROCURONIUM 100 MG/10 ML VIAL IV ONE (16:52)
[2021-02-23] MEDS ORDERED: MORPHINE 2 MG/1 ML SYRINGE IV PRN (16:52)
[2021-02-23] MEDS ORDERED: MORPHINE 2 MG/1 ML SYRINGE ONE (16:55)
[2021-02-23] MEDS: METOCLOPRAMIDE 10 MG/10 ML UDCUP PO SCH (18:20)
[2021-02-23] MEDS: LACTULOSE 20 GM/30 ML UDCUP PO PRN (21:20)
[2021-02-23] MEDS: ATORVASTATIN 20 MG TABLET PO SCH (21:22)
[2021-02-23] MEDS: MELATONIN 3 MG TABLET PO SCH (21:23)
[2021-02-24] MEDS: INSULIN REGULAR 100 UNIT/ML SUBCUT SCH ×4 (00:19→17:33)
[2021-02-24] MEDS: METOCLOPRAMIDE 10 MG/10 ML UDCUP PO SCH ×4 (00:45→17:37)
[2021-02-24] MEDS: methylPREDNISolone SOD SUC 40 MG/1 ML VIAL IV SCH ×3 (02:30→17:37)
[2021-02-24 02:39] LABS: ABG Base Excess 2.8 MMOL/L (-2.5-2.5); ABG HCO3 29.5 MMOL/L (20-26); ABG Oxygen Saturation 98.9 % (95-100); ABG PCO2 55.8 MM HG (35-48); ABG PH 7.341 (7.35-7.45); ABG PO2 292.7 MM HG (80-95); ABG TCO2 31.2 MMOL/L (23-27)
[2021-02-24] MEDS: ALBUTEROL/IPRATROPIUM 3 ML NEB RESP TX SCH ×6 (03:35→23:20)
[2021-02-24 03:54] LABS: Basophils # 0.1 10*3/uL (0.0-0.2); Basophils % 0.4 % (0.0-0.8); Eosinophils # 0.1 10*3/uL (0.0-0.87); Eosinophils % 0.4 % (0.00-10.9); Hematocrit 32.5 VOL% (42.0-52.0); Hemoglobin 10.5 GM/DL (14.0-18.0); Immature Granulocytes % 5.8 %; Immature Granulocytes Absolute 0.82 #; Lymphocytes # 1.5 10*3/uL (1.4-4.0); Lymphocytes % 10.6 % (21.2-54.2); Mean Corpuscular HGB Conc 32.3 GM/DL (32-36); Mean Corpuscular Volume 97.9 FL (87-102); Mean Platelet Volume 10.8 FL (9.6-12.0); Monocytes % 7.8 % (1.7-12.7); Platelet Count 197 T/CUMM (130-400); Red Blood Count 3.32 MC/CUMM (3.8-5.5); Red Cell Distribution Width 14.9 % (9.3-17.3); White Blood Count 14.2 T/CUMM (4-12)
[2021-02-24] MEDS: MEROPENEM 500 MG in SODIUM CHLORIDE 0.9% 100 ML IV SCH ×4 (04:08→20:53)
[2021-02-24 04:13] LABS: Calcium 8.3 MG/DL (8.5-10.1); Osmolality,Calculated 290.3 MOS/KG (273-304); Potassium 3.9 MMOL/L (3.5-5.1)
[2021-02-24 04:25] LABS: Hypochromasia 1+; Lymphocytes 12 % (20-55); Microcytosis 1+; Platelet Estimate Adequate; Segmented Neutrophils 80 % (50-85); Total Cells Counted 100
[2021-02-24] MEDS: MIDAZOLAM 100 MG in SODIUM CHLORIDE 0.9% 80 ML IV PRN ×3 (05:01→19:31)
[2021-02-24] MEDS: DORNASE ALFA 2.5 MG/2.5 ML VIAL RESP TX SCH ×2 (07:53→19:12)
[2021-02-24] MEDS: ENOXAPARIN 150 MG/ML SYRINGE SUBCUT SCH ×2 (08:31→20:54)
[2021-02-24] MEDS: ZINC GLUCONATE 50 MG TABLET PO SCH (08:32)
[2021-02-24] MEDS: FUROSEMIDE 20 MG/2 ML VIAL IV SCH (08:32)
[2021-02-24] MEDS: ASCORBIC ACID 500 MG TABLET PO SCH ×2 (08:32→20:53)
[2021-02-24] MEDS: RIFAMPIN 300 MG CAPSULE PO SCH ×2 (08:32→20:53)
[2021-02-24] MEDS: FENOFIBRATE 145 MG TABLET PO SCH (08:32)
[2021-02-24] MEDS: CHOLECALCIFEROL 5,000 UNIT TABLET PO SCH ×2 (08:33→20:53)
[2021-02-24] MEDS: FAMOTIDINE 20 MG TABLET PO SCH ×2 (08:33→20:54)
[2021-02-24] MEDS: MULTIVITAMIN LIQUID (CENTRUM) 60 ML BOTTLE PO SCH (08:33)
[2021-02-24] MEDS: POLYETHYLENE GLYCOL POWDER 17 GM PACK PO SCH (08:34)
[2021-02-24] MEDS: NEOMYCIN/POLYMYXIN/HC OTIC SOLN 10 ML BOTTLE LEFT EAR SCH ×3 (08:34→21:04)
[2021-02-24] MEDS: amLODIPine 10 MG TABLET PO SCH (08:35)
[2021-02-24] MEDS: fentaNYL INJ 5,000 MCG in SODIUM CHLORIDE 0.9% 150 ML IV PRN ×2 (11:10→22:21)
[2021-02-24 14:05] LABS: Hematocrit 32.9 VOL% (42.0-52.0); Hemoglobin 10.2 GM/DL (14.0-18.0)
[2021-02-24] MEDS: VANCOMYCIN INJ 2,000 MG in SODIUM CHLORIDE 0.9% 500 ML IV SCH (17:18)
[2021-02-24] MEDS: MELATONIN 3 MG TABLET PO SCH (20:54)
[2021-02-24] MEDS: ATORVASTATIN 20 MG TABLET PO SCH (21:17)
[2021-02-25] MEDS: INSULIN REGULAR 100 UNIT/ML SUBCUT SCH ×4 (00:29→18:19)
[2021-02-25] MEDS: METOCLOPRAMIDE 10 MG/10 ML UDCUP PO SCH ×4 (00:29→17:01)
[2021-02-25] MEDS: methylPREDNISolone SOD SUC 40 MG/1 ML VIAL IV SCH ×3 (01:16→17:02)
[2021-02-25] MEDS: ALBUTEROL/IPRATROPIUM 3 ML NEB RESP TX SCH ×6 (02:09→23:30)
[2021-02-25] MEDS: MEROPENEM 500 MG in SODIUM CHLORIDE 0.9% 100 ML IV SCH (02:44)
[2021-02-25 03:49] LABS: ABG Base Excess 2.8 MMOL/L (-2.5-2.5); ABG HCO3 26.9 MMOL/L (20-26); ABG Oxygen Saturation 98.6 % (95-100); ABG PCO2 56.3 MM HG (35-48); ABG PH 7.333 (7.35-7.45)
[2021-02-25] MEDS: ACETAMINOPHEN 325 MG TABLET PO PRN (04:30)
[2021-02-25 05:00] LABS: Basophils # 0.1 10*3/uL (0.0-0.2); Basophils % 0.5 % (0.0-0.8); Eosinophils # 0.2 10*3/uL (0.0-0.87); Hematocrit 34.5 VOL% (42.0-52.0); Hemoglobin 11.2 GM/DL (14.0-18.0); Immature Granulocytes % 7.7 %; Immature Granulocytes Absolute 1.19 #; Lymphocytes # 1.5 10*3/uL (1.4-4.0); Lymphocytes % 9.5 % (21.2-54.2); Mean Corpuscular HGB Conc 32.5 GM/DL (32-36); Mean Corpuscular Volume 96.6 FL (87-102); Mean Platelet Volume 11.2 FL (9.6-12.0); Monocytes % 6.7 % (1.7-12.7); NRBC # 0.05 10*3/uL; Neutrophils % 74.6 % (38.7-73.9); Platelet Count 178 T/CUMM (130-400); Red Blood Count 3.57 MC/CUMM (3.8-5.5); Red Cell Distribution Width 15.7 % (9.3-17.3); White Blood Count 15.5 T/CUMM (4-12)
[2021-02-25 05:26] LABS: Calcium 8.9 MG/DL (8.5-10.1); Osmolality,Calculated 292.4 MOS/KG (273-304); Potassium 4.2 MMOL/L (3.5-5.1)
[2021-02-25 05:30] LABS: Band Neutrophils 3 % (0-10); Lymphocytes 12 % (20-55); Platelet Estimate Normal; Segmented Neutrophils 81 % (50-85); Total Cells Counted 100
[2021-02-25] MEDS: DORNASE ALFA 2.5 MG/2.5 ML VIAL RESP TX SCH ×2 (07:30→19:41)
[2021-02-25] MEDS: POLYETHYLENE GLYCOL POWDER 17 GM PACK PO SCH (08:36)
[2021-02-25] MEDS: amLODIPine 10 MG TABLET PO SCH (08:36)
[2021-02-25] MEDS: NEOMYCIN/POLYMYXIN/HC OTIC SOLN 10 ML BOTTLE LEFT EAR SCH ×3 (08:38→22:23)
[2021-02-25] MEDS: ENOXAPARIN 150 MG/ML SYRINGE SUBCUT SCH ×2 (08:39→20:46)
[2021-02-25] MEDS: FAMOTIDINE 20 MG TABLET PO SCH ×2 (08:40→20:46)
[2021-02-25] MEDS: RIFAMPIN 300 MG CAPSULE PO SCH ×2 (08:40→20:46)
[2021-02-25] MEDS: ASCORBIC ACID 500 MG TABLET PO SCH ×2 (08:40→20:46)
[2021-02-25] MEDS: FENOFIBRATE 145 MG TABLET PO SCH (08:40)
[2021-02-25] MEDS: MULTIVITAMIN LIQUID (CENTRUM) 60 ML BOTTLE PO SCH (08:40)
[2021-02-25] MEDS: ZINC GLUCONATE 50 MG TABLET PO SCH (08:40)
[2021-02-25] MEDS: CHOLECALCIFEROL 5,000 UNIT TABLET PO SCH ×2 (08:40→20:46)
[2021-02-25] MEDS ORDERED: LORazepam 2 MG/1 ML VIAL ONE ×2 (09:08→18:12)
[2021-02-25] MEDS: LORazepam 2 MG/1 ML VIAL IV PRN ×2 (09:09→18:13)
[2021-02-25] MEDS: fentaNYL INJ 5,000 MCG in SODIUM CHLORIDE 0.9% 150 ML IV PRN (11:51)
[2021-02-25] MEDS: MIDAZOLAM 100 MG in SODIUM CHLORIDE 0.9% 80 ML IV PRN (20:25)
[2021-02-25] MEDS: MELATONIN 3 MG TABLET PO SCH (20:46)
[2021-02-25] MEDS: ATORVASTATIN 20 MG TABLET PO SCH (20:46)
[2021-02-25] MEDS: NOREPINEPHRINE 16 MG in SODIUM CHLORIDE 0.9% 234 ML IV PRN (21:19)
[2021-02-26] MEDS: METOCLOPRAMIDE 10 MG/10 ML UDCUP PO SCH ×4 (01:01→17:31)
[2021-02-26] MEDS: INSULIN REGULAR 100 UNIT/ML SUBCUT SCH ×4 (01:10→17:30)
[2021-02-26] MEDS: methylPREDNISolone SOD SUC 40 MG/1 ML VIAL IV SCH ×4 (02:18→21:52)
[2021-02-26] MEDS: ALBUTEROL/IPRATROPIUM 3 ML NEB RESP TX SCH ×5 (03:45→19:16)
[2021-02-26 04:11] LABS: Basophils # 0.1 10*3/uL (0.0-0.2); Basophils % 0.5 % (0.0-0.8); Eosinophils # 0.6 10*3/uL (0.0-0.87); Eosinophils % 2.8 % (0.00-10.9); Hematocrit 30.4 VOL% (42.0-52.0); Hemoglobin 9.7 GM/DL (14.0-18.0); Immature Granulocytes % 8.8 %; Immature Granulocytes Absolute 1.71 #; Lymphocytes # 2.3 10*3/uL (1.4-4.0); Lymphocytes % 11.9 % (21.2-54.2); Mean Corpuscular HGB Conc 31.9 GM/DL (32-36); Mean Corpuscular Volume 98.1 FL (87-102); Monocytes % 5.8 % (1.7-12.7); Neutrophils % 70.2 % (38.7-73.9); Platelet Count 184 T/CUMM (130-400); White Blood Count 19.4 T/CUMM (4-12)
[2021-02-26 04:30] LABS: Calcium 8.7 MG/DL (8.5-10.1); Osmolality,Calculated 294.3 MOS/KG (273-304); Potassium 3.7 MMOL/L (3.5-5.1)
[2021-02-26 04:41] LABS: ABG Base Excess 0.2 MMOL/L (-2.5-2.5); ABG HCO3 24.6 MMOL/L (20-26); ABG Oxygen Saturation 97.8 % (95-100); ABG PH 7.283 (7.35-7.45); ABG TCO2 25.8 MMOL/L (23-27)
[2021-02-26] MEDS: MIDAZOLAM 100 MG in SODIUM CHLORIDE 0.9% 80 ML IV PRN ×4 (05:53→22:50)
[2021-02-26 06:18] LABS: Band Neutrophils 1 % (0-10); Eosinophils 5 % (0-10); Lymphocytes 19 % (20-55); Metamyelocytes 2 %; Nucleated Red Blood Cells 4 (0-5); Segmented Neutrophils 68 % (50-85); Total Cells Counted 100
[2021-02-26 06:19] LABS: Hypochromasia 1+; Platelet Estimate Normal
[2021-02-26] MEDS: DORNASE ALFA 2.5 MG/2.5 ML VIAL RESP TX SCH ×2 (06:55→19:16)
[2021-02-26] MEDS: MULTIVITAMIN LIQUID (CENTRUM) 60 ML BOTTLE PO SCH (08:56)
[2021-02-26] MEDS: NEOMYCIN/POLYMYXIN/HC OTIC SOLN 10 ML BOTTLE LEFT EAR SCH ×3 (08:57→20:16)
[2021-02-26] MEDS: ENOXAPARIN 150 MG/ML SYRINGE SUBCUT SCH (09:00)
[2021-02-26] MEDS: CHOLECALCIFEROL 5,000 UNIT TABLET PO SCH ×2 (09:01→20:04)
[2021-02-26] MEDS: RIFAMPIN 300 MG CAPSULE PO SCH ×2 (09:01→20:03)
[2021-02-26] MEDS: ASCORBIC ACID 500 MG TABLET PO SCH ×2 (09:01→20:04)
[2021-02-26] MEDS: amLODIPine 10 MG TABLET PO SCH (09:01)
[2021-02-26] MEDS: FAMOTIDINE 20 MG TABLET PO SCH (09:01)
[2021-02-26] MEDS: FENOFIBRATE 145 MG TABLET PO SCH (09:01)
[2021-02-26] MEDS: POLYETHYLENE GLYCOL POWDER 17 GM PACK PO SCH (09:01)
[2021-02-26] MEDS: ZINC GLUCONATE 50 MG TABLET PO SCH (09:01)
[2021-02-26] MEDS: fentaNYL INJ 5,000 MCG in SODIUM CHLORIDE 0.9% 150 ML IV PRN (15:34)
[2021-02-26] MEDS: PANTOPRAZOLE 40 MG VIAL IV SCH ×2 (15:48→20:03)
[2021-02-26 16:26] LABS: ABG Base Excess 2.1 MMOL/L (-2.5-2.5); ABG HCO3 26.3 MMOL/L (20-26); ABG Oxygen Saturation 99.4 % (95-100); ABG PCO2 48.8 MM HG (35-48); ABG PH 7.365 (7.35-7.45); ABG TCO2 26.1 MMOL/L (23-27)
[2021-02-26] MEDS: ATORVASTATIN 20 MG TABLET PO SCH (20:03)
[2021-02-26] MEDS: MELATONIN 3 MG TABLET PO SCH (20:04)
[2021-02-27] MEDS: METOCLOPRAMIDE 10 MG/10 ML UDCUP PO SCH ×4 (00:04→18:15)
[2021-02-27] MEDS: INSULIN REGULAR 100 UNIT/ML SUBCUT SCH ×4 (00:04→18:06)
[2021-02-27] MEDS: ALBUTEROL/IPRATROPIUM 3 ML NEB RESP TX SCH ×6 (00:05→19:17)
[2021-02-27 04:39] LABS: Basophils # 0.1 10*3/uL (0.0-0.2); Basophils % 0.2 % (0.0-0.8); Eosinophils # 0.5 10*3/uL (0.0-0.87); Eosinophils % 1.8 % (0.00-10.9); Immature Granulocytes % 8.2 %; Immature Granulocytes Absolute 2.32 #; Lymphocytes # 3.8 10*3/uL (1.4-4.0); Lymphocytes % 13.4 % (21.2-54.2); Mean Corpuscular HGB Conc 32.2 GM/DL (32-36); Mean Corpuscular Volume 101.3 FL (87-102); Mean Platelet Volume 11.4 FL (9.6-12.0); Monocytes % 5.6 % (1.7-12.7); NRBC # 1.67 10*3/uL; Neutrophils % 70.8 % (38.7-73.9); Platelet Count 163 T/CUMM (130-400); Red Cell Distribution Width 16.8 % (9.3-17.3)
[2021-02-27 04:41] LABS: Hemoglobin 7.4 GM/DL (14.0-18.0); Red Blood Count 2.27 MC/CUMM (3.8-5.5); White Blood Count 28.5 T/CUMM (4-12)
[2021-02-27 04:48] LABS: Band Neutrophils 4 % (0-10); Eosinophils 2 % (0-10); Lymphocytes 13 % (20-55); Myelocytes 3 %; Nucleated Red Blood Cells 2 (0-5); Segmented Neutrophils 76 % (50-85); Total Cells Counted 100
[2021-02-27 04:49] LABS: Microcytosis 1+; Polychromasia Slight
[2021-02-27 04:53] LABS: ABG Base Excess -0.8 MMOL/L (-2.5-2.5); ABG HCO3 23.8 MMOL/L (20-26); ABG Oxygen Saturation 99.4 % (95-100); ABG PCO2 48.5 MM HG (35-48); ABG PH 7.326 (7.35-7.45)
[2021-02-27 05:26] LABS: Calcium 7.9 MG/DL (8.5-10.1); Osmolality,Calculated 295.5 MOS/KG (273-304); Potassium 3.8 MMOL/L (3.5-5.1)
[2021-02-27] MEDS: methylPREDNISolone SOD SUC 40 MG/1 ML VIAL IV SCH ×2 (05:31→14:23)
[2021-02-27 05:43] LABS: Albumin 2.7 G/DL (3.4-5.0); Calcium 8.1 MG/DL (8.5-10.1); Osmolality,Calculated 297.4 MOS/KG (273-304); Potassium 3.8 MMOL/L (3.5-5.1)
[2021-02-27] MEDS: DORNASE ALFA 2.5 MG/2.5 ML VIAL RESP TX SCH ×2 (07:25→19:17)
[2021-02-27] MEDS: MIDAZOLAM 100 MG in SODIUM CHLORIDE 0.9% 80 ML IV PRN ×2 (07:41→15:42)
[2021-02-27] MEDS ORDERED: SODIUM CHLORIDE 0.9% 1,000 ML IV PRN ×3 (08:49→11:42)
[2021-02-27] MEDS: FENOFIBRATE 145 MG TABLET PO SCH (09:05)
[2021-02-27] MEDS: MULTIVITAMIN LIQUID (CENTRUM) 60 ML BOTTLE PO SCH (09:05)
[2021-02-27] MEDS: ASCORBIC ACID 500 MG TABLET PO SCH ×2 (09:05→20:13)
[2021-02-27] MEDS: NEOMYCIN/POLYMYXIN/HC OTIC SOLN 10 ML BOTTLE LEFT EAR SCH (09:05)
[2021-02-27] MEDS: RIFAMPIN 300 MG CAPSULE PO SCH (09:05)
[2021-02-27] MEDS: PANTOPRAZOLE 40 MG VIAL IV SCH ×2 (09:05→20:13)
[2021-02-27] MEDS: POLYETHYLENE GLYCOL POWDER 17 GM PACK PO SCH (09:05)
[2021-02-27] MEDS: ZINC GLUCONATE 50 MG TABLET PO SCH (09:06)
[2021-02-27] MEDS: CHOLECALCIFEROL 5,000 UNIT TABLET PO SCH ×2 (09:06→20:13)
[2021-02-27] MEDS: NOREPINEPHRINE 16 MG in SODIUM CHLORIDE 0.9% 234 ML IV PRN ×3 (09:11→21:16)
[2021-02-27] MEDS ORDERED: SODIUM CHLORIDE 0.9% 1,000 ML IV ONE (10:15)
[2021-02-27 15:22] LABS: INR 1.2; PT Patient Result 12.9 SECS (10.5-12.0); Partial Thromboplastin Time < 20.0 SECS (23.9-33.8)
[2021-02-27] MEDS ORDERED: VANCOMYCIN INJ 2,000 MG in SODIUM CHLORIDE 0.9% 500 ML IV SCH (17:00)
[2021-02-27 17:08] LABS: Hematocrit 27.1 VOL% (42.0-52.0)
[2021-02-27] MEDS: fentaNYL INJ 5,000 MCG in SODIUM CHLORIDE 0.9% 150 ML IV PRN (19:21)
[2021-02-27] MEDS: LORazepam 2 MG/1 ML VIAL IV PRN (20:12)
[2021-02-27] MEDS: ATORVASTATIN 20 MG TABLET PO SCH (20:13)
[2021-02-27] MEDS: ACETAMINOPHEN 325 MG TABLET PO PRN (20:20)
[2021-02-27] MEDS: MELATONIN 3 MG TABLET PO SCH (21:12)
[2021-02-27] MEDS ORDERED: ALBUMIN 5% 12.5 GM/250 ML VIAL IV ONE (22:05)
[2021-02-28] MEDS: MIDAZOLAM 100 MG in SODIUM CHLORIDE 0.9% 80 ML IV PRN ×3 (00:11→18:35)
[2021-02-28] MEDS: METOCLOPRAMIDE 10 MG/10 ML UDCUP PO SCH ×4 (00:14→17:44)
[2021-02-28] MEDS: methylPREDNISolone SOD SUC 40 MG/1 ML VIAL IV SCH ×4 (00:14→23:03)
[2021-02-28] MEDS: ALBUTEROL/IPRATROPIUM 3 ML NEB RESP TX SCH ×6 (00:15→19:26)
[2021-02-28] MEDS ORDERED: SODIUM CHLORIDE 0.9% 500 ML IV ONE (00:16)
[2021-02-28] MEDS: INSULIN REGULAR 100 UNIT/ML SUBCUT SCH ×4 (00:17→18:30)
[2021-02-28 03:57] LABS: Basophils # 0.1 10*3/uL (0.0-0.2); Basophils % 0.3 % (0.0-0.8); Eosinophils # 0.1 10*3/uL (0.0-0.87); Eosinophils % 0.2 % (0.00-10.9); Lymphocytes # 2.3 10*3/uL (1.4-4.0); Lymphocytes % 4.9 % (21.2-54.2); Mean Corpuscular HGB Conc 34.8 GM/DL (32-36); Mean Corpuscular Volume 96.6 FL (87-102); Mean Platelet Volume 11.2 FL (9.6-12.0); Monocytes % 5.2 % (1.7-12.7); NRBC # 4.34 10*3/uL; Neutrophils % 82.4 % (38.7-73.9); Platelet Count 130 T/CUMM (130-400); Red Blood Count 2.38 MC/CUMM (3.8-5.5); Red Cell Distribution Width 16.8 % (9.3-17.3)
[2021-02-28 04:20] LABS: INR 1.2; PT Patient Result 13.5 SECS (10.5-12.0); Partial Thromboplastin Time 26.8 SECS (23.9-33.8)
[2021-02-28 04:34] LABS: ABG Base Excess -8.6 MMOL/L (-2.5-2.5); ABG HCO3 17.4 MMOL/L (20-26); ABG Oxygen Saturation 96.9 % (95-100); ABG PCO2 39.6 MM HG (35-48); ABG PH 7.262 (7.35-7.45)
[2021-02-28 04:35] LABS: Band Neutrophils 7 % (0-10); Hypochromasia Slight; Lymphocytes 5 % (20-55); Nucleated Red Blood Cells 10 (0-5); Platelet Estimate Normal; Segmented Neutrophils 85 % (50-85); Total Cells Counted 100
[2021-02-28] MEDS: NOREPINEPHRINE 16 MG in SODIUM CHLORIDE 0.9% 234 ML IV PRN ×3 (05:58→14:53)
[2021-02-28 06:47] LABS: Osmolality,Calculated 301.7 MOS/KG (273-304); Potassium 4.3 MMOL/L (3.5-5.1)
[2021-02-28] MEDS: DORNASE ALFA 2.5 MG/2.5 ML VIAL RESP TX SCH ×2 (07:14→19:35)
[2021-02-28] MEDS: fentaNYL INJ 5,000 MCG in SODIUM CHLORIDE 0.9% 150 ML IV PRN ×2 (07:37→19:33)
[2021-02-28] MEDS: CEFEPIME 1,000 MG in SODIUM CHLORIDE 0.9% 100 ML IV SCH ×2 (08:57→20:16)
[2021-02-28] MEDS: FLUCONAZOLE INJ 200 MG/100 ML PREMIX IV SCH (08:57)
[2021-02-28] MEDS: POLYETHYLENE GLYCOL POWDER 17 GM PACK PO SCH (09:00)
[2021-02-28] MEDS: MULTIVITAMIN LIQUID (CENTRUM) 60 ML BOTTLE PO SCH (09:00)
[2021-02-28] MEDS ORDERED: SODIUM CHLORIDE 0.9% 1,000 ML IV ONE (09:00)
[2021-02-28] MEDS: ZINC GLUCONATE 50 MG TABLET PO SCH (09:01)
[2021-02-28] MEDS: ASCORBIC ACID 500 MG TABLET PO SCH ×2 (09:01→20:16)
[2021-02-28] MEDS: FENOFIBRATE 145 MG TABLET PO SCH (09:01)
[2021-02-28] MEDS: CHOLECALCIFEROL 5,000 UNIT TABLET PO SCH ×2 (09:01→20:16)
[2021-02-28] MEDS: PANTOPRAZOLE 40 MG VIAL IV SCH ×2 (09:18→20:16)
[2021-02-28 09:24] LABS: Amorphous Crystals,Urine Few /HPF (Few); Bilirubin,Urine Negative (Negative); Blood, Urine Small mg/dL (Negative); Glucose,Urine (UA) Negative (Negative); Ketones,Urine Negative (Negative); Mucus,Urine Few /LPF (Occasional); Nitrite,Urine Negative (Negative); Protein,Urine 30 MG/DL; RBC,Urine 15 /HPF (0-4); Squamous Epithelial Cell,Urine Occasional /HPF (0-10); Urine Appearance CLOUDY (Clear); Urine Color Amber (Yellow); Urine Urobilinogen < 2.0 EU/DL (0.2-1.0)
[2021-02-28] MEDS ORDERED: NOREPINEPHRINE 4 MG/4 ML VIAL IV ONE ×2 (10:14→10:15)
[2021-02-28] MEDS: LACTULOSE 20 GM/30 ML UDCUP PO SCH ×3 (10:57→23:03)
[2021-02-28] MEDS: SODIUM BICARB INJ 50 MEQ in SODIUM CHLORIDE 0.45% 1,000 ML IV SCH (13:38)
[2021-02-28] MEDS: MELATONIN 3 MG TABLET PO SCH (20:16)
[2021-02-28] MEDS: ATORVASTATIN 20 MG TABLET PO SCH (20:16)
[2021-03-01] MEDS: ALBUTEROL/IPRATROPIUM 3 ML NEB RESP TX SCH ×7 (00:23→23:00)
[2021-03-01] MEDS: METOCLOPRAMIDE 10 MG/10 ML UDCUP PO SCH ×5 (01:01→23:58)
[2021-03-01] MEDS: INSULIN REGULAR 100 UNIT/ML SUBCUT SCH ×4 (01:01→17:10)
[2021-03-01] MEDS: MIDAZOLAM 100 MG in SODIUM CHLORIDE 0.9% 80 ML IV PRN ×3 (01:45→17:54)
[2021-03-01] MEDS: SODIUM BICARB INJ 50 MEQ in SODIUM CHLORIDE 0.45% 1,000 ML IV SCH (02:00)
[2021-03-01] MEDS: NOREPINEPHRINE 16 MG in SODIUM CHLORIDE 0.9% 234 ML IV PRN (02:30)
[2021-03-01 03:59] LABS: ABG Base Excess -10.4 MMOL/L (-2.5-2.5); ABG Oxygen Saturation 95.8 % (95-100); ABG PCO2 39.2 MM HG (35-48); ABG PO2 93.1 MM HG (80-95)
[2021-03-01 04:22] LABS: Basophils # 0.1 10*3/uL (0.0-0.2); Basophils % 0.3 % (0.0-0.8); Eosinophils # 0.3 10*3/uL (0.0-0.87); Eosinophils % 1.1 % (0.00-10.9); Hematocrit 18.2 VOL% (42.0-52.0); Immature Granulocytes % 5.7 %; Immature Granulocytes Absolute 1.75 #; Lymphocytes # 0.9 10*3/uL (1.4-4.0); Lymphocytes % 2.8 % (21.2-54.2); Mean Corpuscular HGB Conc 35.2 GM/DL (32-36); Mean Platelet Volume 11.4 FL (9.6-12.0); Monocytes % 5.6 % (1.7-12.7); NRBC # 4.37 10*3/uL; Neutrophils % 84.5 % (38.7-73.9); Red Blood Count 1.82 MC/CUMM (3.8-5.5); Red Cell Distribution Width 18.1 % (9.3-17.3); White Blood Count 30.7 T/CUMM (4-12)
[2021-03-01 04:33] LABS: Hemoglobin 6.4 GM/DL (14.0-18.0); Platelet Count 91 T/CUMM (130-400)
[2021-03-01] MEDS: LACTULOSE 20 GM/30 ML UDCUP PO SCH ×4 (04:33→22:47)
[2021-03-01 04:39] LABS: Band Neutrophils 3 % (0-10); Eosinophils 1 % (0-10); Hypochromasia Slight; Lymphocytes 6 % (20-55); Microcytosis Slight; Nucleated Red Blood Cells 14 (0-5); Platelet Estimate Decreased; Segmented Neutrophils 89 % (50-85); Total Cells Counted 100
[2021-03-01 05:05] LABS: Calcium 6.5 MG/DL (8.5-10.1); Potassium 4.2 MMOL/L (3.5-5.1)
[2021-03-01] MEDS: methylPREDNISolone SOD SUC 40 MG/1 ML VIAL IV SCH ×3 (06:19→22:47)
[2021-03-01 06:23] LABS: Albumin 2.2 G/DL (3.4-5.0); Calcium 6.8 MG/DL (8.5-10.1); Osmolality,Calculated 308.4 MOS/KG (273-304); Potassium 4.2 MMOL/L (3.5-5.1); Total Protein 3.9 G/DL (6.4-8.2)
[2021-03-01] MEDS: DORNASE ALFA 2.5 MG/2.5 ML VIAL RESP TX SCH ×2 (07:30→19:00)
[2021-03-01] MEDS ORDERED: SODIUM BICARBONATE 50 MEQ/50 ML VIAL IV ONE (08:31)
[2021-03-01] MEDS: PANTOPRAZOLE 40 MG VIAL IV SCH ×2 (08:38→21:09)
[2021-03-01] MEDS: MULTIVITAMIN LIQUID (CENTRUM) 60 ML BOTTLE PO SCH (08:40)
[2021-03-01] MEDS: POLYETHYLENE GLYCOL POWDER 17 GM PACK PO SCH (08:40)
[2021-03-01] MEDS: FENOFIBRATE 145 MG TABLET PO SCH (08:43)
[2021-03-01] MEDS: cefTRIAXone 2,000 MG in SODIUM CHLORIDE 0.9% 100 ML IV SCH ×2 (08:43→21:08)
[2021-03-01] MEDS: ZINC GLUCONATE 50 MG TABLET PO SCH (08:43)
[2021-03-01] MEDS: ASCORBIC ACID 500 MG TABLET PO SCH ×2 (08:43→21:10)
[2021-03-01] MEDS: CHOLECALCIFEROL 5,000 UNIT TABLET PO SCH ×2 (08:43→21:10)
[2021-03-01] MEDS: fentaNYL INJ 5,000 MCG in SODIUM CHLORIDE 0.9% 150 ML IV PRN ×2 (08:52→21:06)
[2021-03-01] MEDS: FLUCONAZOLE INJ 200 MG/100 ML PREMIX IV SCH (09:27)
[2021-03-01 10:27] LABS: Hematocrit 22.3 VOL% (42.0-52.0)
[2021-03-01] MEDS: AMPICILLIN INJ 2,000 MG in SODIUM CHLORIDE 0.9% 100 ML IV SCH ×2 (10:34→21:07)
[2021-03-01 12:00] LABS: PT Patient Result 11.6 SECS (10.5-12.0)
[2021-03-01] MEDS ORDERED: VANCOMYCIN INJ 2,000 MG in SODIUM CHLORIDE 0.9% 500 ML IV ONE (12:00)
[2021-03-01] MEDS: ACETAMINOPHEN 325 MG TABLET PO PRN ×2 (12:09→18:13)
[2021-03-01] MEDS: SODIUM BICARB INJ 100 MEQ in SODIUM CHLORIDE 0.45% 1,000 ML IV SCH ×3 (12:09→23:09)
[2021-03-01] MEDS ORDERED: CEFEPIME 1,000 MG in SODIUM CHLORIDE 0.9% 100 ML IV SCH (20:00)
[2021-03-01] MEDS: MELATONIN 3 MG TABLET PO SCH (21:10)
[2021-03-02] MEDS: INSULIN REGULAR 100 UNIT/ML SUBCUT SCH ×4 (00:20→17:11)
[2021-03-02] MEDS: MIDAZOLAM 100 MG in SODIUM CHLORIDE 0.9% 80 ML IV PRN ×4 (01:10→23:07)
[2021-03-02] MEDS: ALBUTEROL/IPRATROPIUM 3 ML NEB RESP TX SCH ×6 (03:25→23:00)
[2021-03-02 03:57] LABS: ABG Base Excess -6.2 MMOL/L (-2.5-2.5); ABG HCO3 19.9 MMOL/L (20-26); ABG Oxygen Saturation 97.5 % (95-100); ABG PCO2 42.9 MM HG (35-48); ABG PH 7.285 (7.35-7.45); ABG PO2 124.8 MM HG (80-95); ABG TCO2 21.3 MMOL/L (23-27)
[2021-03-02 04:23] LABS: Basophils % 0.2 % (0.0-0.8); Eosinophils # 0.4 10*3/uL (0.0-0.87); Eosinophils % 2.9 % (0.00-10.9); Hematocrit 19.6 VOL% (42.0-52.0); Hemoglobin 6.6 GM/DL (14.0-18.0); Immature Granulocytes % 7.1 %; Immature Granulocytes Absolute 1.02 #; Lymphocytes # 0.5 10*3/uL (1.4-4.0); Lymphocytes % 3.5 % (21.2-54.2); Mean Corpuscular HGB Conc 33.7 GM/DL (32-36); Mean Corpuscular Volume 95.1 FL (87-102); Mean Platelet Volume 11.1 FL (9.6-12.0); Monocytes % 4.7 % (1.7-12.7); NRBC # 1.87 10*3/uL; Neutrophils % 81.6 % (38.7-73.9); Red Blood Count 2.06 MC/CUMM (3.8-5.5); Red Cell Distribution Width 18.1 % (9.3-17.3)
[2021-03-02 04:29] LABS: Platelet Count 48 T/CUMM (130-400); White Blood Count 14.4 T/CUMM (4-12)
[2021-03-02 04:34] LABS: Risk Ratio 11.71; VLDL Cholesterol 160.8 MG/DL
[2021-03-02 04:39] LABS: Band Neutrophils 2 % (0-10); Eosinophils 3 % (0-10); Hypochromasia 1+; Lymphocytes 4 % (20-55); Microcytosis 1+; Nucleated Red Blood Cells 12 (0-5); Platelet Estimate Decreased; Segmented Neutrophils 89 % (50-85); Total Cells Counted 100
[2021-03-02] MEDS ORDERED: SODIUM CHLORIDE 0.9% 1,000 ML IV PRN (04:54)
[2021-03-02] MEDS: LACTULOSE 20 GM/30 ML UDCUP PO SCH ×4 (05:20→22:30)
[2021-03-02 06:13] LABS: Albumin 2.1 G/DL (3.4-5.0); Bilirubin,Total 1.1 MG/DL (0.20-1.00); Calcium 7.5 MG/DL (8.5-10.1); Osmolality,Calculated 317.4 MOS/KG (273-304); Total Protein 4.3 G/DL (6.4-8.2)
[2021-03-02] MEDS: METOCLOPRAMIDE 10 MG/10 ML UDCUP PO SCH ×3 (06:44→17:11)
[2021-03-02] MEDS: methylPREDNISolone SOD SUC 40 MG/1 ML VIAL IV SCH ×3 (06:48→22:30)
[2021-03-02] MEDS: DORNASE ALFA 2.5 MG/2.5 ML VIAL RESP TX SCH (07:21)
[2021-03-02] MEDS: cefTRIAXone 2,000 MG in SODIUM CHLORIDE 0.9% 100 ML IV SCH ×2 (08:13→21:15)
[2021-03-02] MEDS: FLUCONAZOLE INJ 200 MG/100 ML PREMIX IV SCH (08:13)
[2021-03-02] MEDS: PANTOPRAZOLE 40 MG VIAL IV SCH (08:15)
[2021-03-02] MEDS: POLYETHYLENE GLYCOL POWDER 17 GM PACK PO SCH (08:15)
[2021-03-02] MEDS: FENOFIBRATE 145 MG TABLET PO SCH (08:16)
[2021-03-02] MEDS: CHOLECALCIFEROL 5,000 UNIT TABLET PO SCH (08:16)
[2021-03-02] MEDS: ASCORBIC ACID 500 MG TABLET PO SCH ×2 (08:16→21:22)
[2021-03-02] MEDS: ZINC GLUCONATE 50 MG TABLET PO SCH (08:16)
[2021-03-02] MEDS: MULTIVITAMIN LIQUID (CENTRUM) 60 ML BOTTLE PO SCH (08:16)
[2021-03-02] MEDS: AMPICILLIN INJ 2,000 MG in SODIUM CHLORIDE 0.9% 100 ML IV SCH ×2 (09:47→21:16)
[2021-03-02] MEDS: fentaNYL INJ 5,000 MCG in SODIUM CHLORIDE 0.9% 150 ML IV PRN ×2 (10:06→21:24)
[2021-03-02] MEDS ORDERED: POTASSIUM CHLORIDE RIDER 10 MEQ/100 ML PREMIX IV PRN (10:22)
[2021-03-02] MEDS: SODIUM BICARB INJ 100 MEQ in STERILE WATER INJ 1,000 ML IV SCH ×2 (10:33→21:23)
[2021-03-02] MEDS: POTASSIUM CHLORIDE RIDER 20 MEQ/100 ML PREMIX IV PRN ×2 (10:42→12:34)
[2021-03-02 11:49] LABS: Haptoglobin < 31.0 MG/DL (30-200)
[2021-03-02 13:27] LABS: Basophils % 0.2 % (0.0-0.8); Eosinophils # 0.4 10*3/uL (0.0-0.87); Eosinophils % 3.4 % (0.00-10.9); Hematocrit 24.7 VOL% (42.0-52.0); Immature Granulocytes % 6.2 %; Immature Granulocytes Absolute 0.74 #; Lymphocytes # 0.3 10*3/uL (1.4-4.0); Lymphocytes % 2.7 % (21.2-54.2); Mean Corpuscular HGB Conc 32.8 GM/DL (32-36); Mean Corpuscular Volume 92.5 FL (87-102); Mean Platelet Volume 11.7 FL (9.6-12.0); Monocytes % 5.2 % (1.7-12.7); Neutrophils % 82.3 % (38.7-73.9); Platelet Count 41 T/CUMM (130-400); Red Blood Count 2.67 MC/CUMM (3.8-5.5)
[2021-03-02 13:28] LABS: Hemoglobin 8.1 GM/DL (14.0-18.0)
[2021-03-02 13:46] LABS: INR 0.9; PT Patient Result 10.6 SECS (10.5-12.0); Partial Thromboplastin Time 24.5 SECS (23.9-33.8)
[2021-03-02] MEDS: FAMOTIDINE 20 MG/2 ML VIAL IV SCH (13:49)
[2021-03-02] MEDS ORDERED: SODIUM CHLORIDE 0.9% 1,000 ML IV ONE (13:57)
[2021-03-02 14:04] LABS: Band Neutrophils 3 % (0-10); Eosinophils 4 % (0-10); Lymphocytes 2 % (20-55); Segmented Neutrophils 86 % (50-85); Total Cells Counted 100
[2021-03-02 14:05] LABS: Polychromasia Few
[2021-03-02 14:06] LABS: Platelet Estimate Decreased
[2021-03-02 14:07] LABS: Nucleated Red Blood Cells 19 (0-5)
[2021-03-02] MEDS: MELATONIN 3 MG TABLET PO SCH (21:21)
[2021-03-03] MEDS: INSULIN REGULAR 100 UNIT/ML SUBCUT SCH ×5 (01:22→23:41)
[2021-03-03] MEDS: METOCLOPRAMIDE 10 MG/10 ML UDCUP PO SCH ×4 (01:22→17:26)
[2021-03-03] MEDS: POTASSIUM CHLORIDE RIDER 20 MEQ/100 ML PREMIX IV PRN ×2 (01:40→04:00)
[2021-03-03] MEDS: ALBUTEROL/IPRATROPIUM 3 ML NEB RESP TX SCH ×6 (03:00→23:00)
[2021-03-03 04:34] LABS: ABG Base Excess -1.9 MMOL/L (-2.5-2.5); ABG HCO3 22.8 MMOL/L (20-26); ABG Oxygen Saturation 97.8 % (95-100); ABG PCO2 45.2 MM HG (35-48); ABG PH 7.333 (7.35-7.45); ABG TCO2 22.5 MMOL/L (23-27)
[2021-03-03] MEDS: LACTULOSE 20 GM/30 ML UDCUP PO SCH ×4 (04:40→21:45)
[2021-03-03] MEDS: MIDAZOLAM 100 MG in SODIUM CHLORIDE 0.9% 80 ML IV PRN ×3 (06:09→21:20)
[2021-03-03] MEDS: fentaNYL INJ 5,000 MCG in SODIUM CHLORIDE 0.9% 150 ML IV PRN ×2 (06:11→17:25)
[2021-03-03] MEDS: methylPREDNISolone SOD SUC 40 MG/1 ML VIAL IV SCH ×3 (06:15→21:45)
[2021-03-03 06:33] LABS: Basophils % 0.2 % (0.0-0.8); Eosinophils # 0.4 10*3/uL (0.0-0.87); Eosinophils % 6.1 % (0.00-10.9); Hematocrit 23.5 VOL% (42.0-52.0); Hemoglobin 7.6 GM/DL (14.0-18.0); Immature Granulocytes % 5.5 %; Immature Granulocytes Absolute 0.34 #; Lymphocytes # 0.7 10*3/uL (1.4-4.0); Lymphocytes % 11.9 % (21.2-54.2); Mean Corpuscular HGB Conc 32.3 GM/DL (32-36); Mean Corpuscular Volume 94.4 FL (87-102); Mean Platelet Volume 11.5 FL (9.6-12.0); Monocytes % 7.1 % (1.7-12.7); Neutrophils % 69.2 % (38.7-73.9); Red Blood Count 2.49 MC/CUMM (3.8-5.5); Red Cell Distribution Width 17.8 % (9.3-17.3); White Blood Count 6.2 T/CUMM (4-12)
[2021-03-03 06:34] LABS: Platelet Count 37 T/CUMM (130-400)
[2021-03-03 06:38] LABS: PT Patient Result 10.7 SECS (10.5-12.0)
[2021-03-03 06:47] LABS: Bilirubin,Total 0.8 MG/DL (0.20-1.00); Calcium 8.2 MG/DL (8.5-10.1); Potassium 3.4 MMOL/L (3.5-5.1); Total Protein 4.5 G/DL (6.4-8.2)
[2021-03-03 06:59] LABS: Anisocytosis 2+; Band Neutrophils 20 % (0-10); Eosinophils 3 % (0-10); Lymphocytes 8 % (20-55); Metamyelocytes 2 %; Nucleated Red Blood Cells 24 (0-5); Platelet Estimate Decreased; Segmented Neutrophils 64 % (50-85); Total Cells Counted 100
[2021-03-03 07:00] LABS: Basophilic Stippling Slight; Macrocytosis 1+; Polychromasia Slight; Tear Drop Cells Few
[2021-03-03] MEDS: cefTRIAXone 2,000 MG in SODIUM CHLORIDE 0.9% 100 ML IV SCH ×2 (08:08→19:44)
[2021-03-03] MEDS: AMPICILLIN INJ 2,000 MG in SODIUM CHLORIDE 0.9% 100 ML IV SCH ×4 (08:09→20:38)
[2021-03-03] MEDS: FLUCONAZOLE INJ 200 MG/100 ML PREMIX IV SCH (08:18)
[2021-03-03] MEDS: MULTIVITAMIN LIQUID (CENTRUM) 60 ML BOTTLE PO SCH (08:19)
[2021-03-03] MEDS: POLYETHYLENE GLYCOL POWDER 17 GM PACK PO SCH (08:19)
[2021-03-03] MEDS: FENOFIBRATE 145 MG TABLET PO SCH (08:20)
[2021-03-03] MEDS: ASCORBIC ACID 500 MG TABLET PO SCH ×2 (08:20→20:02)
[2021-03-03] MEDS: ZINC GLUCONATE 50 MG TABLET PO SCH (08:20)
[2021-03-03] MEDS ORDERED: VANCOMYCIN INJ 2,000 MG in SODIUM CHLORIDE 0.9% 500 ML IV ONE (09:00)
[2021-03-03] MEDS ORDERED: SODIUM BICARB INJ 50 MEQ in STERILE WATER INJ 1,000 ML IV SCH (09:30)
[2021-03-03] MEDS: FAMOTIDINE 20 MG/2 ML VIAL IV SCH (13:31)
[2021-03-03] MEDS ORDERED: DEXTROSE 50% 25 GM/50 ML VIAL IV PRN (16:46)
[2021-03-03] MEDS: MELATONIN 3 MG TABLET PO SCH (20:01)
[2021-03-04] MEDS: AMPICILLIN INJ 2,000 MG in SODIUM CHLORIDE 0.9% 100 ML IV SCH ×6 (01:01→20:51)
[2021-03-04] MEDS: METOCLOPRAMIDE 10 MG/10 ML UDCUP PO SCH ×2 (01:01→05:23)
[2021-03-04] MEDS: ALBUTEROL/IPRATROPIUM 3 ML NEB RESP TX SCH ×6 (02:03→23:00)
[2021-03-04] MEDS: fentaNYL INJ 5,000 MCG in SODIUM CHLORIDE 0.9% 150 ML IV PRN ×2 (02:08→15:02)
[2021-03-04] MEDS ORDERED: LORazepam 2 MG/1 ML VIAL ONE (03:37)
[2021-03-04] MEDS ORDERED: LORazepam 2 MG/1 ML VIAL IV ONE (03:40)
[2021-03-04 04:10] LABS: ABG Base Excess 1.9 MMOL/L (-2.5-2.5); ABG HCO3 27.9 MMOL/L (20-26); ABG Oxygen Saturation 97.5 % (95-100); ABG PCO2 51.4 MM HG (35-48); ABG PH 7.353 (7.35-7.45); ABG PO2 118.4 MM HG (80-95); ABG TCO2 29.5 MMOL/L (23-27)
[2021-03-04] MEDS: LACTULOSE 20 GM/30 ML UDCUP PO SCH ×4 (04:52→23:06)
[2021-03-04 05:07] LABS: Basophils % 0.2 % (0.0-0.8); Eosinophils # 0.2 10*3/uL (0.0-0.87); Eosinophils % 5.1 % (0.00-10.9); Hematocrit 24.6 VOL% (42.0-52.0); Hemoglobin 7.6 GM/DL (14.0-18.0); Immature Granulocytes % 3.4 %; Immature Granulocytes Absolute 0.16 #; Lymphocytes # 0.3 10*3/uL (1.4-4.0); Lymphocytes % 7.3 % (21.2-54.2); Mean Corpuscular HGB Conc 30.9 GM/DL (32-36); Mean Corpuscular Volume 97.2 FL (87-102); Mean Platelet Volume 12.1 FL (9.6-12.0); Monocytes % 5.6 % (1.7-12.7); NRBC # 0.47 10*3/uL; Neutrophils % 78.4 % (38.7-73.9); Red Blood Count 2.53 MC/CUMM (3.8-5.5); Red Cell Distribution Width 19.8 % (9.3-17.3); White Blood Count 4.7 T/CUMM (4-12)
[2021-03-04] MEDS: MIDAZOLAM 100 MG in SODIUM CHLORIDE 0.9% 80 ML IV PRN ×2 (05:12→17:20)
[2021-03-04 05:18] LABS: PT Patient Result 10.8 SECS (10.5-12.0)
[2021-03-04 05:29] LABS: Albumin 1.9 G/DL (3.4-5.0); Bilirubin,Total 0.7 MG/DL (0.20-1.00); Calcium 8.3 MG/DL (8.5-10.1); Potassium 3.7 MMOL/L (3.5-5.1); Total Protein 4.6 G/DL (6.4-8.2)
[2021-03-04 05:31] LABS: Risk Ratio 8.43; VLDL Cholesterol 59.4 MG/DL
[2021-03-04 06:12] LABS: Platelet Count 34 T/CUMM (130-400)
[2021-03-04] MEDS: INSULIN REGULAR 100 UNIT/ML SUBCUT SCH ×3 (06:42→17:59)
[2021-03-04] MEDS: methylPREDNISolone SOD SUC 40 MG/1 ML VIAL IV SCH ×3 (06:50→23:06)
[2021-03-04 07:44] LABS: Anisocytosis 1+; Hypochromasia 1+; Microcytosis 1+; Polychromasia Slight
[2021-03-04 07:45] LABS: Ovalocytes Slight; Platelet Estimate Decreased
[2021-03-04] MEDS: cefTRIAXone 2,000 MG in SODIUM CHLORIDE 0.9% 100 ML IV SCH ×2 (07:54→20:16)
[2021-03-04] MEDS: FLUCONAZOLE INJ 200 MG/100 ML PREMIX IV SCH (08:08)
[2021-03-04] MEDS: ZINC GLUCONATE 50 MG TABLET PO SCH (08:11)
[2021-03-04] MEDS: FENOFIBRATE 145 MG TABLET PO SCH (08:11)
[2021-03-04] MEDS: MULTIVITAMIN LIQUID (CENTRUM) 60 ML BOTTLE PO SCH (08:11)
[2021-03-04] MEDS: ASCORBIC ACID 500 MG TABLET PO SCH ×2 (08:11→20:17)
[2021-03-04] MEDS: POLYETHYLENE GLYCOL POWDER 17 GM PACK PO SCH (08:11)
[2021-03-04] MEDS ORDERED: SODIUM CHLORIDE 0.9% 1,000 ML IV PRN (10:30)
[2021-03-04 14:25] VITALS: BP 134/79
[2021-03-04] MEDS: DEXTROSE 5% 1,000 ML IV SCH (15:29)
[2021-03-04] MEDS: FAMOTIDINE 20 MG/2 ML VIAL IV SCH (15:29)
[2021-03-04 18:31] LABS: Calcium 8.6 MG/DL (8.5-10.1); Osmolality,Calculated 309.9 MOS/KG (273-304); Potassium 3.9 MMOL/L (3.5-5.1)
[2021-03-04] MEDS: MELATONIN 3 MG TABLET PO SCH (20:17)
[2021-03-05] MEDS: INSULIN REGULAR 100 UNIT/ML SUBCUT SCH ×4 (00:53→18:21)
[2021-03-05] MEDS: AMPICILLIN INJ 2,000 MG in SODIUM CHLORIDE 0.9% 100 ML IV SCH ×3 (01:08→08:37)
[2021-03-05] MEDS: ALBUTEROL/IPRATROPIUM 3 ML NEB RESP TX SCH ×7 (03:00→23:40)
[2021-03-05] MEDS: MIDAZOLAM 100 MG in SODIUM CHLORIDE 0.9% 80 ML IV PRN ×3 (03:11→17:37)
[2021-03-05] MEDS: LACTULOSE 20 GM/30 ML UDCUP PO SCH ×4 (04:01→22:37)
[2021-03-05 04:02] LABS: ABG Base Excess 3.6 MMOL/L (-2.5-2.5); ABG HCO3 27.6 MMOL/L (20-26); ABG Oxygen Saturation 96.3 % (95-100); ABG PCO2 54.9 MM HG (35-48); ABG PH 7.347 (7.35-7.45); ABG PO2 83.4 MM HG (80-95); ABG TCO2 28.1 MMOL/L (23-27)
[2021-03-05 04:44] LABS: Basophils % 0.2 % (0.0-0.8); Eosinophils # 0.2 10*3/uL (0.0-0.87); Eosinophils % 4.6 % (0.00-10.9); Hematocrit 27.4 VOL% (42.0-52.0); Hemoglobin 8.2 GM/DL (14.0-18.0); Immature Granulocytes % 1.8 %; Immature Granulocytes Absolute 0.08 #; Lymphocytes # 0.5 10*3/uL (1.4-4.0); Lymphocytes % 10.7 % (21.2-54.2); Mean Corpuscular HGB Conc 29.9 GM/DL (32-36); Mean Corpuscular Volume 99.3 FL (87-102); Mean Platelet Volume 11.1 FL (9.6-12.0); Monocytes % 7.9 % (1.7-12.7); NRBC # 0.13 10*3/uL; Neutrophils % 74.8 % (38.7-73.9); Platelet Count 53 T/CUMM (130-400); Red Blood Count 2.76 MC/CUMM (3.8-5.5); Red Cell Distribution Width 20.9 % (9.3-17.3); White Blood Count 4.6 T/CUMM (4-12)
[2021-03-05 04:48] LABS: PT Patient Result 11.3 SECS (10.5-12.0)
[2021-03-05 04:53] LABS: Albumin 2.1 G/DL (3.4-5.0); Bilirubin,Total 0.9 MG/DL (0.20-1.00); Calcium 8.7 MG/DL (8.5-10.1); Total Protein 4.9 G/DL (6.4-8.2)
[2021-03-05 04:57] LABS: Potassium 4.2 MMOL/L (3.5-5.1)
[2021-03-05 05:04] LABS: Hypochromasia 1+; Microcytosis 1+; Platelet Estimate Decreased
[2021-03-05 05:06] LABS: Osmolality,Calculated 312.7 MOS/KG (273-304)
[2021-03-05] MEDS: methylPREDNISolone SOD SUC 40 MG/1 ML VIAL IV SCH ×3 (06:07→22:05)
[2021-03-05] MEDS: FENOFIBRATE 145 MG TABLET PO SCH (08:35)
[2021-03-05] MEDS: cefTRIAXone 2,000 MG in SODIUM CHLORIDE 0.9% 100 ML IV SCH (08:35)
[2021-03-05] MEDS: ASCORBIC ACID 500 MG TABLET PO SCH ×2 (08:35→20:54)
[2021-03-05] MEDS: FLUCONAZOLE INJ 200 MG/100 ML PREMIX IV SCH (08:35)
[2021-03-05] MEDS: POLYETHYLENE GLYCOL POWDER 17 GM PACK PO SCH (08:36)
[2021-03-05] MEDS: MULTIVITAMIN LIQUID (CENTRUM) 60 ML BOTTLE PO SCH (08:36)
[2021-03-05] MEDS: ZINC GLUCONATE 50 MG TABLET PO SCH (08:36)
[2021-03-05] MEDS: DEXTROSE 5% 1,000 ML IV SCH (08:36)
[2021-03-05] MEDS: fentaNYL INJ 5,000 MCG in SODIUM CHLORIDE 0.9% 150 ML IV PRN ×2 (09:28)
[2021-03-05] MEDS ORDERED: MIDAZOLAM 100 MG in DEXTROSE 5% 80 ML IV PRN (12:30)
[2021-03-05] MEDS: DEXTROSE 5% IV SCH ×3 (14:04→22:37)
[2021-03-05] MEDS: AMPICILLIN IV SCH ×3 (14:04→22:37)
[2021-03-05] MEDS: FAMOTIDINE 20 MG/2 ML VIAL IV SCH (14:58)
[2021-03-05 15:06] LABS: HIT Interpretation Negative (Negative)
[2021-03-05] MEDS: levETIRAcetam INJ 500 MG in DEXTROSE 5% 100 ML IV SCH (16:44)
[2021-03-05] MEDS ORDERED: VANCOMYCIN INJ 2,000 MG in SODIUM CHLORIDE 0.9% 500 ML IV SCH (17:00)
[2021-03-05] MEDS ORDERED: MIDAZOLAM 100 MG in SODIUM CHLORIDE 0.9% 80 ML IV PRN (18:58)
[2021-03-05] MEDS: MELATONIN 3 MG TABLET PO SCH (20:54)
[2021-03-05] MEDS: FENTANYL IV PRN (22:39)
[2021-03-05] MEDS: DEXTROSE 5% IV PRN (22:39)
[2021-03-05] MEDS: cefTRIAXone 2,000 MG in DEXTROSE 5% 100 ML IV SCH (23:13)
[2021-03-06] MEDS: INSULIN REGULAR 100 UNIT/ML SUBCUT SCH ×4 (00:28→17:07)
[2021-03-06] MEDS ORDERED: LORazepam 2 MG/1 ML VIAL IV ONE (01:16)
[2021-03-06] MEDS ORDERED: LORazepam 2 MG/1 ML VIAL ONE (01:18)
[2021-03-06] MEDS: DEXTROSE 5% IV SCH ×6 (01:34→21:02)
[2021-03-06] MEDS: AMPICILLIN IV SCH ×6 (01:34→21:02)
[2021-03-06] MEDS: ALBUTEROL/IPRATROPIUM 3 ML NEB RESP TX SCH ×5 (03:00→23:00)
[2021-03-06] MEDS: MIDAZOLAM 100 MG in SODIUM CHLORIDE 0.9% 80 ML IV PRN (03:30)
[2021-03-06 04:15] LABS: ABG Base Excess 4.4 MMOL/L (-2.5-2.5); ABG HCO3 28.4 MMOL/L (20-26); ABG Oxygen Saturation 98.4 % (95-100); ABG PCO2 48.4 MM HG (35-48); ABG PH 7.402 (7.35-7.45); ABG TCO2 26.6 MMOL/L (23-27); Allen Test Positive; Pt O2 Delivery Device Ventilator
[2021-03-06 04:56] LABS: Eosinophils # 0.2 10*3/uL (0.0-0.87); Eosinophils % 4.6 % (0.00-10.9); Hematocrit 28.4 VOL% (42.0-52.0); Hemoglobin 8.5 GM/DL (14.0-18.0); Immature Granulocytes % 1.1 %; Immature Granulocytes Absolute 0.05 #; Lymphocytes # 0.4 10*3/uL (1.4-4.0); Lymphocytes % 8.8 % (21.2-54.2); Mean Corpuscular HGB Conc 29.9 GM/DL (32-36); Mean Corpuscular Volume 100.4 FL (87-102); NRBC # 0.05 10*3/uL; Neutrophils % 78.5 % (38.7-73.9); Platelet Count 80 T/CUMM (130-400); Red Blood Count 2.83 MC/CUMM (3.8-5.5); Red Cell Distribution Width 20.7 % (9.3-17.3); White Blood Count 4.6 T/CUMM (4-12)
[2021-03-06] MEDS: levETIRAcetam INJ 500 MG in DEXTROSE 5% 100 ML IV SCH ×2 (05:10→15:44)
[2021-03-06 05:15] LABS: Hypochromasia 1+; Microcytosis 1+; Platelet Estimate Decreased
[2021-03-06] MEDS: LACTULOSE 20 GM/30 ML UDCUP PO SCH ×4 (05:18→21:49)
[2021-03-06 05:19] LABS: Albumin 2.2 G/DL (3.4-5.0); Calcium 8.5 MG/DL (8.5-10.1); Potassium 3.9 MMOL/L (3.5-5.1); Total Protein 5.1 G/DL (6.4-8.2)
[2021-03-06 05:31] LABS: Osmolality,Calculated 306.9 MOS/KG (273-304)
[2021-03-06] MEDS: DEXTROSE 5% IV PRN (07:00)
[2021-03-06] MEDS: FENTANYL IV PRN (07:00)
[2021-03-06] MEDS: methylPREDNISolone SOD SUC 40 MG/1 ML VIAL IV SCH ×3 (07:20→21:40)
[2021-03-06] MEDS: POLYETHYLENE GLYCOL POWDER 17 GM PACK PO SCH (08:23)
[2021-03-06] MEDS: FLUCONAZOLE INJ 200 MG/100 ML PREMIX IV SCH (08:23)
[2021-03-06] MEDS: ZINC GLUCONATE 50 MG TABLET PO SCH (08:24)
[2021-03-06] MEDS: FENOFIBRATE 145 MG TABLET PO SCH (08:24)
[2021-03-06] MEDS: ASCORBIC ACID 500 MG TABLET PO SCH ×2 (08:24→21:01)
[2021-03-06] MEDS: MULTIVITAMIN LIQUID (CENTRUM) 60 ML BOTTLE PO SCH (08:25)
[2021-03-06] MEDS: cefTRIAXone 2,000 MG in DEXTROSE 5% 100 ML IV SCH ×2 (10:22→21:02)
[2021-03-06] MEDS: MIDAZOLAM 100 MG in DEXTROSE 5% 80 ML IV PRN ×2 (11:43→19:46)
[2021-03-06] MEDS: FAMOTIDINE 20 MG/2 ML VIAL IV SCH (13:18)
[2021-03-06] MEDS: MELATONIN 3 MG TABLET PO SCH (21:01)
[2021-03-06] MEDS: CIPROFLOXACIN/DEXAMETHASONE OTIC SUSP 7.5 ML BOTTLE BOTH EARS SCH (21:01)
[2021-03-07] MEDS: INSULIN REGULAR 100 UNIT/ML SUBCUT SCH ×4 (00:14→18:19)
[2021-03-07] MEDS: AMPICILLIN IV SCH ×6 (00:50→20:53)
[2021-03-07] MEDS: DEXTROSE 5% IV SCH ×6 (00:50→20:53)
[2021-03-07] MEDS: ALBUTEROL/IPRATROPIUM 3 ML NEB RESP TX SCH (02:13)
[2021-03-07] MEDS: MIDAZOLAM 100 MG in DEXTROSE 5% 80 ML IV PRN ×3 (02:26→18:45)
[2021-03-07] MEDS: FENTANYL IV PRN (02:27)
[2021-03-07] MEDS: DEXTROSE 5% IV PRN (02:27)
[2021-03-07 04:09] LABS: ABG Base Excess 5.7 MMOL/L (-2.5-2.5); ABG HCO3 29.6 MMOL/L (20-26); ABG PCO2 46.1 MM HG (35-48); ABG PH 7.432 (7.35-7.45); ABG TCO2 28.5 MMOL/L (23-27)
[2021-03-07] MEDS: LACTULOSE 20 GM/30 ML UDCUP PO SCH ×4 (04:23→22:53)
[2021-03-07] MEDS: levETIRAcetam INJ 500 MG in DEXTROSE 5% 100 ML IV SCH ×2 (04:23→16:05)
[2021-03-07 04:31] LABS: Basophils % 0.2 % (0.0-0.8); Eosinophils # 0.2 10*3/uL (0.0-0.87); Eosinophils % 4.2 % (0.00-10.9); Hematocrit 28.1 VOL% (42.0-52.0); Hemoglobin 8.3 GM/DL (14.0-18.0); Immature Granulocytes Absolute 0.05 #; Lymphocytes # 0.5 10*3/uL (1.4-4.0); Lymphocytes % 11.1 % (21.2-54.2); Mean Corpuscular HGB Conc 29.5 GM/DL (32-36); Mean Corpuscular Volume 101.1 FL (87-102); Mean Platelet Volume 10.8 FL (9.6-12.0); Monocytes % 9.9 % (1.7-12.7); NRBC # 0.02 10*3/uL; Neutrophils % 73.6 % (38.7-73.9); Platelet Count 103 T/CUMM (130-400); Red Blood Count 2.78 MC/CUMM (3.8-5.5); Red Cell Distribution Width 21.4 % (9.3-17.3); White Blood Count 4.8 T/CUMM (4-12)
[2021-03-07 04:46] LABS: Albumin 2.2 G/DL (3.4-5.0); Bilirubin,Total 0.7 MG/DL (0.20-1.00); Calcium 8.8 MG/DL (8.5-10.1); Osmolality,Calculated 309.6 MOS/KG (273-304); Potassium 3.6 MMOL/L (3.5-5.1)
[2021-03-07] MEDS: methylPREDNISolone SOD SUC 40 MG/1 ML VIAL IV SCH ×3 (06:34→22:53)
[2021-03-07] MEDS: DEXTROSE 5% 1,000 ML IV SCH (08:44)
[2021-03-07] MEDS: cefTRIAXone 2,000 MG in DEXTROSE 5% 100 ML IV SCH ×2 (09:00→20:53)
[2021-03-07] MEDS: CIPROFLOXACIN/DEXAMETHASONE OTIC SUSP 7.5 ML BOTTLE BOTH EARS SCH ×2 (09:11→20:57)
[2021-03-07] MEDS ORDERED: SEVOFLURANE 1 UNIT/15 MINUTE INH ONE (09:46)
[2021-03-07] MEDS ORDERED: ROCURONIUM 50 MG/5 ML VIAL IV ONE (09:46)
[2021-03-07] MEDS ORDERED: PHENYLEPHRINE 1 MG/10 ML SYRINGE IV ONE (09:46)
[2021-03-07] MEDS ORDERED: MIDAZOLAM 2 MG/2 ML VIAL ONE ×4 (09:46→11:26)
[2021-03-07] MEDS ORDERED: fentaNYL 100 MCG/2 ML VIAL ONE (09:47)
[2021-03-07] MEDS: ASCORBIC ACID 500 MG TABLET PO SCH ×2 (10:43→20:53)
[2021-03-07] MEDS: POLYETHYLENE GLYCOL POWDER 17 GM PACK PO SCH (10:44)
[2021-03-07] MEDS: FENOFIBRATE 145 MG TABLET PO SCH (10:44)
[2021-03-07] MEDS: MULTIVITAMIN LIQUID (CENTRUM) 60 ML BOTTLE PO SCH (10:44)
[2021-03-07] MEDS: ZINC GLUCONATE 50 MG TABLET PO SCH (10:44)
[2021-03-07] MEDS ORDERED: VECURONIUM 10 MG VIAL IV ONE ×2 (10:54→11:25)
[2021-03-07] MEDS: FAMOTIDINE 20 MG/2 ML VIAL IV SCH (14:34)
[2021-03-07] MEDS: METOCLOPRAMIDE 10 MG/2 ML VIAL IV SCH ×2 (16:04→22:52)
[2021-03-07] MEDS: MENTHOL/ZINC OXIDE OINT 71 GM JAR TOP SCH (20:52)
[2021-03-07] MEDS: MELATONIN 3 MG TABLET PO SCH (20:53)
[2021-03-08] MEDS: AMPICILLIN IV SCH ×6 (01:06→20:15)
[2021-03-08] MEDS: DEXTROSE 5% IV SCH ×6 (01:06→20:15)
[2021-03-08] MEDS: INSULIN REGULAR 100 UNIT/ML SUBCUT SCH ×4 (01:06→18:44)
[2021-03-08] MEDS: MIDAZOLAM 100 MG in DEXTROSE 5% 80 ML IV PRN ×2 (02:57→17:06)
[2021-03-08] MEDS: levETIRAcetam INJ 500 MG in DEXTROSE 5% 100 ML IV SCH ×2 (03:44→17:42)
[2021-03-08] MEDS: LACTULOSE 20 GM/30 ML UDCUP PO SCH ×4 (03:45→23:15)
[2021-03-08] MEDS: METOCLOPRAMIDE 10 MG/2 ML VIAL IV SCH ×4 (03:45→23:03)
[2021-03-08 04:22] LABS: Eosinophils # 0.1 10*3/uL (0.0-0.87); Eosinophils % 1.6 % (0.00-10.9); Hemoglobin 7.9 GM/DL (14.0-18.0); Immature Granulocytes % 0.5 %; Immature Granulocytes Absolute 0.03 #; Lymphocytes # 0.6 10*3/uL (1.4-4.0); Mean Corpuscular HGB Conc 30.4 GM/DL (32-36); Mean Corpuscular Volume 101.6 FL (87-102); Mean Platelet Volume 10.6 FL (9.6-12.0); Monocytes % 7.8 % (1.7-12.7); NRBC # 0.02 10*3/uL; Neutrophils % 79.1 % (38.7-73.9); Platelet Count 111 T/CUMM (130-400); Red Blood Count 2.56 MC/CUMM (3.8-5.5); White Blood Count 5.6 T/CUMM (4-12)
[2021-03-08] MEDS: DEXTROSE 5% 1,000 ML IV SCH (04:44)
[2021-03-08 04:45] LABS: Albumin 2.1 G/DL (3.4-5.0); Bilirubin,Total 0.7 MG/DL (0.20-1.00); Calcium 8.2 MG/DL (8.5-10.1); Potassium 3.6 MMOL/L (3.5-5.1); Total Protein 4.8 G/DL (6.4-8.2)
[2021-03-08 05:12] LABS: ABG Base Excess 4.6 MMOL/L (-2.5-2.5); ABG HCO3 28.5 MMOL/L (20-26); ABG PCO2 45.8 MM HG (35-48); ABG PH 7.419 (7.35-7.45); ABG PO2 81.4 MM HG (80-95); ABG TCO2 27.6 MMOL/L (23-27)
[2021-03-08] MEDS: methylPREDNISolone SOD SUC 40 MG/1 ML VIAL IV SCH ×3 (06:28→23:03)
[2021-03-08] MEDS: MULTIVITAMIN LIQUID (CENTRUM) 60 ML BOTTLE PO SCH (08:36)
[2021-03-08] MEDS: MENTHOL/ZINC OXIDE OINT 71 GM JAR TOP SCH ×2 (08:36→20:45)
[2021-03-08] MEDS: FENOFIBRATE 145 MG TABLET PO SCH (08:37)
[2021-03-08] MEDS: ASCORBIC ACID 500 MG TABLET PO SCH ×2 (08:37→20:45)
[2021-03-08] MEDS: CIPROFLOXACIN/DEXAMETHASONE OTIC SUSP 7.5 ML BOTTLE BOTH EARS SCH ×2 (08:37→20:45)
[2021-03-08] MEDS: POLYETHYLENE GLYCOL POWDER 17 GM PACK PO SCH (08:37)
[2021-03-08] MEDS: ZINC GLUCONATE 50 MG TABLET PO SCH (08:37)
[2021-03-08] MEDS: cefTRIAXone 2,000 MG in DEXTROSE 5% 100 ML IV SCH ×2 (09:57→19:30)
[2021-03-08] MEDS ORDERED: fentaNYL 50 MCG/HR PATCH TRANSDERM SCH (11:00)
[2021-03-08] MEDS: FAMOTIDINE 20 MG/2 ML VIAL IV SCH (14:16)
[2021-03-08] MEDS: MELATONIN 3 MG TABLET PO SCH (20:45)
[2021-03-09] MEDS: INSULIN REGULAR 100 UNIT/ML SUBCUT SCH ×3 (00:12→13:00)
[2021-03-09] MEDS: DEXTROSE 5% IV SCH ×4 (00:50→13:00)
[2021-03-09] MEDS: AMPICILLIN IV SCH ×4 (00:50→13:00)
[2021-03-09 02:44] LABS: ABG Base Excess 4.5 MMOL/L (-2.5-2.5); ABG HCO3 28.5 MMOL/L (20-26); ABG PCO2 37.2 MM HG (35-48); ABG PH 7.486 (7.35-7.45)
[2021-03-09] MEDS: DEXTROSE 5% 1,000 ML IV SCH (03:09)
[2021-03-09] MEDS: METOCLOPRAMIDE 10 MG/2 ML VIAL IV SCH ×3 (04:42→16:29)
[2021-03-09] MEDS: LACTULOSE 20 GM/30 ML UDCUP PO SCH ×3 (04:43→16:44)
[2021-03-09] MEDS: levETIRAcetam INJ 500 MG in DEXTROSE 5% 100 ML IV SCH ×2 (04:43→16:44)
[2021-03-09 05:25] LABS: Basophils % 0.2 % (0.0-0.8); Eosinophils # 0.1 10*3/uL (0.0-0.87); Eosinophils % 1.3 % (0.00-10.9); Hematocrit 25.3 VOL% (42.0-52.0); Immature Granulocytes % 0.6 %; Immature Granulocytes Absolute 0.04 #; Lymphocytes # 0.7 10*3/uL (1.4-4.0); Lymphocytes % 10.7 % (21.2-54.2); Mean Corpuscular HGB Conc 31.6 GM/DL (32-36); Mean Corpuscular Volume 98.8 FL (87-102); Mean Platelet Volume 10.7 FL (9.6-12.0); Monocytes % 7.6 % (1.7-12.7); Neutrophils % 79.6 % (38.7-73.9); Platelet Count 117 T/CUMM (130-400); Red Blood Count 2.56 MC/CUMM (3.8-5.5); Red Cell Distribution Width 20.3 % (9.3-17.3); White Blood Count 6.2 T/CUMM (4-12)
[2021-03-09 05:33] LABS: INR 1.1; PT Patient Result 12.4 SECS (10.5-12.0)
[2021-03-09 05:47] LABS: Calcium 8.3 MG/DL (8.5-10.1); Osmolality,Calculated 295.4 MOS/KG (273-304); Potassium 3.4 MMOL/L (3.5-5.1)
[2021-03-09] MEDS: methylPREDNISolone SOD SUC 40 MG/1 ML VIAL IV SCH ×2 (06:18→15:33)
[2021-03-09] MEDS: POTASSIUM CHLORIDE RIDER 20 MEQ/100 ML PREMIX IV PRN ×2 (06:25→07:41)
[2021-03-09] MEDS ORDERED: LACTATED RINGERS 1,000 ML IV SCH (08:00)
[2021-03-09] MEDS: cefTRIAXone 2,000 MG in DEXTROSE 5% 100 ML IV SCH (08:00)
[2021-03-09] MEDS: CIPROFLOXACIN/DEXAMETHASONE OTIC SUSP 7.5 ML BOTTLE BOTH EARS SCH (08:38)
[2021-03-09] MEDS: MENTHOL/ZINC OXIDE OINT 71 GM JAR TOP SCH (08:38)
[2021-03-09] MEDS: MULTIVITAMIN LIQUID (CENTRUM) 60 ML BOTTLE PO SCH (08:38)
[2021-03-09] MEDS: POLYETHYLENE GLYCOL POWDER 17 GM PACK PO SCH (08:38)
[2021-03-09] MEDS: FENOFIBRATE 145 MG TABLET PO SCH (08:39)
[2021-03-09] MEDS: ASCORBIC ACID 500 MG TABLET PO SCH (08:39)
[2021-03-09] MEDS: ZINC GLUCONATE 50 MG TABLET PO SCH (08:39)
[2021-03-09] MEDS: MIDAZOLAM 100 MG in DEXTROSE 5% 80 ML IV PRN (08:52)
[2021-03-09] MEDS: FAMOTIDINE 20 MG/2 ML VIAL IV SCH (13:00)
[2021-03-09] MEDS ORDERED: ROCURONIUM 50 MG/5 ML VIAL IV ONE (13:35)
[2021-03-09] MEDS ORDERED: propofoL 200 MG/20 ML VIAL IV ONE (13:35)
[2021-03-09] MEDS ORDERED: MIDAZOLAM 2 MG/2 ML VIAL ONE ×2 (13:36)
== END 2021-03-09 17:37 | DRG 4 ==
LOC: N.ED 02:50 → N.EDINP 04:16 → SUATTDRO 04:16 → N.2E 05:17 → N.CC 02-09 04:31
PROVIDERS: ADMIT Hospitalist; ATTEND Internal Medicine
PROC: EGDWPEG (ICD-10-PCS; 2021-03-09 11:05)